=== PATIENT | female | born 1985 | race Caucasian/White ===

== ENCOUNTER 2019-04-01 11:24 | Emergency (ER) | payer BC ==
[2019-04-01 11:39] VITALS: BP 112/82; PULSE 116; TEMP 98.5; BMI 20.9
--- NOTE | 2019-04-01 11:46 | PDOC ---
History of Present Illness - General Chief Complaint: Respiratory Stated Complaint: COUGH H/O OF SINUS INFECTION ON ANTIBIOTIC Time Seen by Provider: 04/01/19 11:29 History Source: Patient Exam Limitations: No Limitations - History of Present Illness Initial Comments: 04/01/19 11:39 33 y/o female with recent sinus infection presents with congestion and cough. Patient is in a eating facility and the doctor will not prescribe Mucinex without patient being seen. Patient denies SOB, fever or chills. She continue to smoke. No N/V/d/C. Patient has asthma and is not using inhaler. Seen at an urgent care 3 days ago and started on antibiotics, Cefdinir. Is this a multiple visit Asthma Patient?: No Past History - Past Medical History Allergies/Adverse Reactions: Allergies Allergy/AdvReac Type Severity Reaction Status Date / Time gabapentin Allergy Intermediate Rash Verified 04/01/19 11:27 levofloxacin [From Levaquin] Allergy Intermediate Rash Verified 04/01/19 11:26 COPD: No GI Disorders: Yes (IBS GASTROPORESIS) Psychiatric Problems: Yes (ANXIETY) Other medical history: ANOREXIA, OSTEOPOROSIS - Immunization History Immunization Up to Date: Yes - Psycho Social/Smoking Cessation Hx Smoking History: Current every day smoker Number of Cigarettes Smoked Daily: 6 Information on smoking cessation initiated: No Hx Alcohol Use: No Drug/Substance Use Hx: No Review of Systems - Review of Systems Able to Perform ROS?: Yes Is the patient limited British proficient: No Constitutional: No: Chills, Fever HEENTM: Yes: Nose Congestion Respiratory: Yes: Cough. No: Shortness of Breath Cardiac (ROS): No: Chest Pain ABD/GI: No: Diarrhea, Nausea, Vomiting Integumentary: No: Rash All Other Systems: Reviewed and Negative *Physical Exam - Vital Signs Last Vital Signs Temp Pulse Resp BP Pulse Ox 98.5 F 116 H 16 112/82 98 04/01/19 11:26 04/01/19 11:26 04/01/19 11:26 04/01/19 11:26 04/01/19 11:26 - Physical Exam General Appearance: Yes: Nourished, Appropriately Dressed. No: Apparent Distress HEENT: positive: EOMI, BA, Normal ENT Inspection, Normal Voice, Pharynx Normal Neck: positive: Trachea midline, Normal Thyroid, Supple. negative: Tender, Rigid Respiratory/Chest: negative: Chest Tender, Lungs Clear (coarse breath sounds with occasional expiratory wheeze), Normal Breath Sounds (occasional expiratory wheeze noted), Respiratory Distress, Accessory Muscle Use Cardiovascular: positive: Regular Rhythm, Regular Rate, S1, S2. negative: Edema , Murmur Vascular Pulses: Femoral (R): 4+, Femoral (L): 4+, Carotid (R): 4+, Carotid (L) : 4+, Dorsalis-Pedis (R): 4+, Doralis-Pedis (L): 4+ Gastrointestinal/Abdominal: positive: Normal Bowel Sounds, Flat, Soft. negative : Tender, Organomegaly Lymphatic: negative: Adenopathy, Tenderness, Other Musculoskeletal: positive: Normal Inspection. 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 NML intact, Fully Oriented, Alert, Normal Mood/ Affect, Normal Response, Motor Strength 5/5 ED Progress Note - Progress Note Progress Note: 04/01/19 11:43 33 y/o female with sinus infection, now with increase congestion and cough Appears to have bronchitis as well Continue antibiotic Use albuterol inhaler Patient refused Prednisone, risks and benefits discussed with patient If worsen return to ER Patient is in agreement with plan Discharge - Discharge Information Problems reviewed: Yes Clinical Impression/Diagnosis: Bronchitis Condition: Stable - Admission No - Follow up/Referral - Patient Discharge Instructions Patient Printed Discharge Instructions: DI for Acute Bronchitis Additional Instructions: Continue current antibiotics Use your albuterol inhaler 2 puffs 4x/day as needed Mucinex 2x/day as needed Flonase 1 spray 2x/day Stop smoking If worsen return to ER - Post Discharge Activity
== END 2019-04-01 11:56 | disposition home or self-care (01) ==
LOC: FER 11:24
DX: J40 Bronchitis, not specified as acute or chronic (principal); F17.210 Nicotine dependence, cigarettes, uncomplicated; Z88.8 Allergy status to other drugs, medicaments and biological substances
CPT/HCPCS: 99281-25

== ENCOUNTER 2019-04-10 14:57 | Emergency (ER) | payer BC ==
[2019-04-10 15:16] VITALS: TEMP 98.3; BMI 21.2
--- NOTE | 2019-04-10 15:27 | PDOC ---
History of Present Illness - General Chief Complaint: Revisit, Lab Variance Stated Complaint: SENT FOR LABS History Source: Patient Exam Limitations: No Limitations - History of Present Illness Initial Comments: 04/10/19 15:20 33f hx of anorexia presents with abnormal labs - Patient has been in a prison for the past month For management of her anorexia. The patient has been getting diuretics including spironolactone and Bumex for management of fluid retention. The patients Weight has been fluctuating based on the dose of her diuretics. The patient's BUN has been increasing and has been in the high 20s to 30s recently she has been getting outpatient labs approximately every other day. The patient herself states that she has been eating and drinking well but notes that she feels swollen. Patient Also endorses a recent cough she was diagnosed with a pneumonia recently. The patient also notes some chronic back pain. Pain she denies any lower extremity edema, dyspnea on exertion. Is this a multiple visit Asthma Patient?: No Past History - Past Medical History Allergies/Adverse Reactions: Allergies Allergy/AdvReac Type Severity Reaction Status Date / Time gabapentin Allergy Intermediate Rash Verified 04/10/19 15:02 levofloxacin [From Levaquin] Allergy Intermediate Rash Verified 04/10/19 15:02 Home Medications: Ambulatory Orders Diazepam [Valium] 2.5 mg PO BID 04/01/19 Duloxetine HCl [Cymbalta] 80 mg PO DAILY 04/01/19 Lorazepam [Ativan] 1 mg PO DAILY 04/01/19 Lorazepam [Ativan] 2 mg PO DAILY 04/01/19 Melatonin 5 mg PO DAILY 04/01/19 Metoclopramide HCl [Reglan] 5 mg PO QID 04/01/19 Amoxicillin/Potassium Clav [Augmentin 875-125 Tablet] 1 each PO BID 04/10/19 Azithromycin [Zithromax -] 250 mg PO DAILY 04/10/19 Bisacodyl [Dulcolax] 5 mg PO TID 04/10/19 Bumetanide [Bumex -] 1 mg PO DAILY 04/10/19 Bumetanide [Bumex -] 2 mg PO HS 04/10/19 Levothyroxine Sodium [Levoxyl] 187.5 mcg PO DAILY 04/10/19 Linaclotide [Linzess] 290 mcg PO DAILY 04/10/19 Loratadine [Allergy] 10 mg PO BID 04/10/19 Magnesium Hydrox 2400MG/30Ml [Milk of Magnesia -] 30 ml PO ONCE 04/10/19 Polyethylene Glycol 3350 [Miralax (For Daily Use) -] 17 gm PO TID 04/10/19 Spironolactone [Aldactone] 200 mg PO DAILY 04/10/19 Zolpidem Tartrate [Ambien] 5 mg PO HS 04/10/19 COPD: No GI Disorders: Yes (IBS GASTROPORESIS) Psychiatric Problems: Yes (ANXIETY) - Immunization History Immunization Up to Date: Yes - Psycho Social/Smoking Cessation Hx Smoking History: Current every day smoker Number of Cigarettes Smoked Daily: 6 Information on smoking cessation initiated: Yes Hx Alcohol Use: No Drug/Substance Use Hx: No Review of Systems - Review of Systems Able to Perform ROS?: Yes Comments:: 04/10/19 16:14 Constitutional - no reported Fever, Chills, HEENT: no reported vision changes, sore throat Respiratory: +cough, no reported sob, hemoptysis Cardiac: no reported chest pain, palpitations, light headedness, leg swelling Abd/GI: no reported abd pain, nausea, vomiting, blood per rectum, melena, diarrhea : no reported dysuria, frequency, discharge Musculskelatal - no reported back pain, joint swelling skin - no reported bruising, erythema, rash neurological: no reported headache, numbness, focal weakness, tingling, ataxia, hematologic: no reported easy bruising, easy bleeding *Physical Exam - Vital Signs Last Vital Signs Temp Pulse Resp BP Pulse Ox 98.3 F 109 H 18 127/81 98 04/10/19 15:03 04/10/19 15:03 04/10/19 15:03 04/10/19 15:03 04/10/19 15:03 - Physical Exam Comments: 04/10/19 16:14 GENERAL: The patient is awake, alert, and fully oriented, Nontoxic - in no acute distress. HEAD: Normocephalic, atraumatic. EYES: extraocular movements intact, sclera anicteric, conjunctiva clear. ENT: Normal voice, Moist mucous membranes. NECK: Normal range of motion, supple LUNGS: Breath sounds equal, clear to auscultation bilaterally. No wheezes, no rhonchi, no rales. HEART: Regular rate and rhythm, normal S1 and S2 without murmur, rub or gallop. ABDOMEN: Soft, nontender, No guarding, no rebound. No CVA tenderness EXTREMITIES: Normal range of motion, no edema. NEUROLOGICAL: No facial assymetry, Normal speech, PSYCH: Normal mood, normal affect. SKIN: Warm, Dry, normal turgor, Heart Score/ECG Review - ECG Impressions Comment:: 04/10/19 16:14 Twelve-lead EKG was performed and reviewed by me. There is normal sinus rhythm with a rate of 96 The axis is normal. The intervals are normal. There is normal R wave progression There are no ST or T wave abnormalities. ED Treatment Course - LABORATORY CBC & Chemistry Diagram: 04/10/19 15:23 04/10/19 15:23 - RADIOLOGY Radiology Studies Ordered: Category Date Time Status CHEST PA & LAT [RAD] Stat Radiology 04/10/19 15:14 Ordered Medical Decision Making - Medical Decision Making 04/10/19 16:15 33-year-old history of anorexia, hypothyroid, pna, presenting with abnormal labs per residential facility. The patient does not have any acute complaints, Although she does state that she has diffuse swelling that is from her fluid retention. On exam the patient is no acute distress, her vitals were normal she Was slightly tachycardic upon arrival however her heart rate was 96 when reassessed. We obtained a blood work which was stable with her creatinine of 0.8 and a BUN at 36. I suspect this may be due to overdiuresis. Would recommend to decrease diuresis. Will discuss with their PATIENT SERVICES COORDINATOR and dc back to facility Discharge - Discharge Information Problems reviewed: Yes Clinical Impression/Diagnosis: Elevated BUN, Anorexia Condition: Improved Disposition: HOME - Admission No - Follow up/Referral Referrals: Ольга Gardner NP [Non Staff, Medical] - - Patient Discharge Instructions Patient Printed Discharge Instructions: DI for Dehydration -- Adult Additional Instructions: Please follow up with SERGIO Gardner for further managemnt of your diuretics and renal function. Your renal function is likely related to diuretic use. Please ensure you are eating/drinking regualrly. Print Language: SLOVAK - Post Discharge Activity
[2019-04-10 15:43] LABS: BASO % 0.7 % (0-2.0); EOS % 5.9 % (0-4.5); HEMATOCRIT 32.5 % (32.4-45.2); HEMOGLOBIN 10.7 GM/dl (10.7-15.3); LYMPH % 28.5 % (8-40); MCH 26.5 pg (25.7-33.7); MCHC 32.9 g/dl (32.0-36.0); MEAN CELL VOLUME 80.5 fl (80-96); MEAN PLT VOLUME 7.9 fl (7.5-11.1); MONO % 13.2 % (3.8-10.2); NEUT % 51.7 % (42.8-82.8); PLATELET COUNT 614 K/MM3 (134-434); RBC 4.03 M/mm3 (3.60-5.2); RDW 16.2 % (11.6-15.6); WHITE BLOOD COUNT 11.1 K/mm3 (4.0-10.8)
[2019-04-10 15:51] LABS: ALBUMIN 4.2 g/dl (3.4-5.0); BILIRUBIN,TOTAL 0.2 mg/dl (0.2-1); CALCIUM 9.3 mg/dl (8.5-10); CREATININE 0.9 mg/dl (0.55-1.3); POTASSIUM 4.4 mmol/L (3.5-5.1); TOT PROT 7.4 g/dl (6.4-8.2)
[2019-04-10] MEDS ORDERED: ACETAMINOPHEN 325 MG TABLET (FP) PO ONE (16:13)
[2019-04-10] MEDS ORDERED: ACETAMINOPHEN 325 MG TABLET (FP) ONE (16:15)
[2019-04-10 16:22] LABS: URINE APPEARANCE CLEAR; URINE COLOR YELLOW
[2019-04-10 16:23] LABS: PH,URINE 7.5 (4.5-8); URINE BILIRUBIN NEGATIVE (NEGATIVE); URINE GLUCOSE (UA) NEGATIVE (NEGATIVE); URINE KETONE TRACE (NEGATIVE); URINE LEUK ESTERASE NEGATIVE (NEGATIVE); URINE NITRITE NEGATIVE (NEGATIVE); URINE PROTEIN NEGATIVE (NEGATIVE); URINE UROBILINOGEN 0.2 (0.2-1.0)
[2019-04-10 17:14] VITALS: BP 126/83; PULSE 91
--- NOTE | 2019-04-11 12:07 | EKG ---
Test Reason : Blood Pressure : / mmHG Vent. Rate : 096 BPM Atrial Rate : 096 BPM P-R Int : 140 ms QRS Dur : 084 ms QT Int : 378 ms P-R-T Axes : 048 050 047 degrees QTc Int : 477 ms NORMAL SINUS RHYTHM POSSIBLE LEFT ATRIAL ENLARGEMENT BORDERLINE ECG WHEN COMPARED WITH ECG OF 04-APR-2019 09:31, NO SIGNIFICANT CHANGE WAS FOUND Confirmed by RITCHIE PRIEST MD ([id number]) on 04/11/2019 12:07:32 PM Referred By: DR AMBROSE Confirmed By:RITCHIE PRIEST MD
== END 2019-04-10 17:18 | disposition home or self-care (01) ==
LOC: FER 14:57
DX: R94.4 Abnormal results of kidney function studies (principal); R63.0 Anorexia; Z88.8 Allergy status to other drugs, medicaments and biological substances; E03.9 Hypothyroidism, unspecified; J18.8 Other pneumonia, unspecified organism
CPT/HCPCS: 36415; 71046-TC-FY; 80053; 81003; 84703; 85025; 93005; 99282-25

== ENCOUNTER 2019-04-11 15:58 | Emergency (ER) | payer BC ==
[2019-04-11 16:03] VITALS: TEMP 98.4; BMI 21.2
--- NOTE | 2019-04-11 16:15 | PDOC ---
History of Present Illness - General Chief Complaint: Revisit, Lab Variance Stated Complaint: RECHECK LABS Time Seen by Provider: 04/11/19 16:04 - History of Present Illness Initial Comments: Tiffany Hamilton is a 33yo woman with a PMH of anorexia who presents from [facility] with report of tachycardia and a 6lb weight gain since yesterday. She was recently seen in the ED yesterday with similar complaints; at that time she reported worsening kidney function and fluctuating weight. The residential COLLEGE PRESIDENT reported to the ED via phone that the patient was tachycardic to 120 with an increase to 130's upon standing. They were concerned about significant fluid overload though they state that Ms Hamilton took her bumex and spironolactone today. Ms Hamilton states that she feels that she has edema "everywhere." She states that she knows because her clothes do not fit the same as before. She denies any fever, chills, chest pain, SOB, visible swelling, PO intolerance, medication noncompliance, change in bowel habits, sick contacts, or new symptoms though she notes chronic back pain. Past History - Past Medical History Allergies/Adverse Reactions: Allergies Allergy/AdvReac Type Severity Reaction Status Date / Time gabapentin Allergy Intermediate Rash Verified 04/10/19 15:02 levofloxacin [From Levaquin] Allergy Intermediate Rash Verified 04/10/19 15:02 Home Medications: Ambulatory Orders Diazepam [Valium] 2.5 mg PO BID 04/01/19 Duloxetine HCl [Cymbalta] 80 mg PO DAILY 04/01/19 Lorazepam [Ativan] 1 mg PO DAILY 04/01/19 Lorazepam [Ativan] 2 mg PO DAILY 04/01/19 Melatonin 5 mg PO DAILY 04/01/19 Metoclopramide HCl [Reglan] 5 mg PO QID 04/01/19 Amoxicillin/Potassium Clav [Augmentin 875-125 Tablet] 1 each PO BID 04/10/19 Azithromycin [Zithromax -] 250 mg PO DAILY 04/10/19 Bisacodyl [Dulcolax] 5 mg PO TID 04/10/19 Bumetanide [Bumex -] 1 mg PO DAILY 04/10/19 Bumetanide [Bumex -] 2 mg PO HS 04/10/19 Levothyroxine Sodium [Levoxyl] 187.5 mcg PO DAILY 04/10/19 Linaclotide [Linzess] 290 mcg PO DAILY 04/10/19 Loratadine [Allergy] 10 mg PO BID 04/10/19 Magnesium Hydrox 2400MG/30Ml [Milk of Magnesia -] 30 ml PO ONCE 04/10/19 Polyethylene Glycol 3350 [Miralax (For Daily Use) -] 17 gm PO TID 04/10/19 Spironolactone [Aldactone] 200 mg PO DAILY 04/10/19 Zolpidem Tartrate [Ambien] 5 mg PO HS 04/10/19 COPD: No GI Disorders: Yes (IBS GASTROPORESIS) Psychiatric Problems: Yes (ANXIETY) - Immunization History Immunization Up to Date: Yes - Psycho Social/Smoking Cessation Hx Smoking History: Current every day smoker Number of Cigarettes Smoked Daily: 6 Information on smoking cessation initiated: Yes Hx Alcohol Use: No Drug/Substance Use Hx: No Review of Systems - Review of Systems Comments:: General: No fevers, no chills, no weight or appetite change, no malaise HEENT: No changes in vision, no changes in hearing, no congestion, no sore throat CV: No chest pain, no palpitations, no LE edema Pulm: No SOB, no cough, no wheezing GI: No nausea or vomiting, no change in bowel habits, no melena : No frequency, no urgency, no dysuria Musc: No back pain, no joint swelling, no recent injury Skin: No rash, no lesions, no erythema Endo: No excessive thirst, no heat/cold intolerance Heme: No unusual bruising or bleeding, no swollen glands Neuro: No syncope, no numbness/tingling, no focal weakness Vasc: No claudication Psych: No recent change in mood, no SI or HI *Physical Exam - Vital Signs Last Vital Signs Temp Pulse Resp BP Pulse Ox 98.4 F 98 H 16 127/64 100 04/11/19 16:00 04/11/19 16:00 04/11/19 16:00 04/11/19 16:00 04/11/19 16:00 ED Treatment Course - LABORATORY CBC & Chemistry Diagram: 04/11/19 16:20 Medical Decision Making - Medical Decision Making 04/11/19 16:14 Tiffany Hamilton is a 33yo woman with a PMH of anorexia who presents from [facility] with report of tachycardia and a 6lb weight gain since yesterday. The residential reported to the ED via phone that the patient was tachycardic to 120 with an increase to 130's upon standing. Ms Hamilton reports feeling "edema everywhere." - No edema apparent on exam. Benign physical exam without significant abnormalities appreciated. Lungs clear. Sats 100% on RA, no wheezing or crackles suggesting fluid. Heart rate in mid 90's - Chemistry completed this morning. No concerning abnormalities noted. BUN unchanged from yesterday, Cr slightly decreased to 0.7 from 0.9 - CBC to evaluate for anemia (baseline hgb around 10) or infection - Orthostatics 04/11/19 17:17 - CBC without concerning abnormalities - Reviewed labs from [facility] 04/05. TFT's recently completed. T4 9.6 (nl 3.2-12.6), T3 102 (60-181). TSH 0.046. Confirmed patient is currently taking synthroid daily. - UA negative - Orthostatics completed. Vitals WNL, no significant change supine to standing. - Will call facility to discuss discharge from ED 04/11/19 17:28 - Call to SERGIO Gardner at [facility]. ([phone]). Goes no voicemail , no answer. Will retry 04/11/19 17:53 - Spoke to Ольга Gardner. She explained that she feels Ms Hamilton needs to be kept in the hospital due to frequent weight fluctuations. She also states that she fears the patient will "go into renal failure" if she does not get daily labs. Explained to SERGIO Gardner that per information available, Ms Hamilton has had stable kidney function for the past approximately 4 weeks. Electrolytes are WNL , and WBC and hbg are stable over the past few weeks as well. The pt has a benign physical exam, normal vitals, and is not orthostatic. Discussed all results at length with SERGIO Gardner, who continued to request admission. Advised her that there is no indication for hospital admission at this time. Recommending outpatient follow up. Discussed with Dr Zuleika Nguyễn PGY2 Discharge - Discharge Information Problems reviewed: Yes Clinical Impression/Diagnosis: Anorexia Condition: Stable Disposition: HOME - Admission No - Follow up/Referral Referrals: Lizy Jimenez MD [Staff Physician] - [facility] [place] [Provider Group] - Patient Discharge Instructions Additional Instructions: Discharge Instructions: You were seen in the emergency department due to concerns about rapid heart rate and weight gain. Your blood tests in the ED did not show any concerning changes. Your kidney function and electrolytes checked as were liver function tests, cell counts, and a urinalysis. None of these results had significant abnormalities seen. Due to your concerns about your kidney function and your use of diuretics, you should follow up with a production tech (kidney specialist) within the next week for evaluation. You have been given contact information for Dr Jimenez. You have also been provided with information for the [facility] internal medicine clinic. Call to schedule an appointment to be seen by a primary care physician within the next week. Seek immediate medical care for any medical emergency including chest pain, difficulty breathing, loss of consciousness, inability to tolerate food or drink , significant vomiting, lack of urination, or any other significant concerns. - Post Discharge Activity
[2019-04-11 16:25] LABS: BASO % 4.4 % (0-2.0); EOS % 5.1 % (0-4.5); HEMATOCRIT 30.1 % (32.4-45.2); HEMOGLOBIN 9.9 GM/dl (10.7-15.3); LYMPH % 27.4 % (8-40); MCH 26.5 pg (25.7-33.7); MCHC 32.8 g/dl (32.0-36.0); MEAN CELL VOLUME 80.9 fl (80-96); MEAN PLT VOLUME 7.9 fl (7.5-11.1); MONO % 13.5 % (3.8-10.2); NEUT % 49.6 % (42.8-82.8); PLATELET COUNT 614 K/MM3 (134-434); RBC 3.72 M/mm3 (3.60-5.2); RDW 16.2 % (11.6-15.6); WHITE BLOOD COUNT 11.9 K/mm3 (4.0-10.8)
--- NOTE | 2019-04-11 17:20 | PDOC ---
Attending Attestation - Resident Resident Name: GopiNadia - ED Attending Attestation I have performed the following: I have examined & evaluated the patient, The case was reviewed & discussed with the resident, I agree w/resident's findings & plan - HPI HPI: 04/11/19 17:16 33-year-old female with history of AK/seizure, anorexia nervosa, pneumonia, pulmonary edema, pericardial effusion, constipation, hypo-thyroidism presenting with sensation of feeling bloated and fluid overloaded. Patient was sent over from facility for her eating disorder where she was noted to have tachycardia and a weight gain of 6.2 pounds since yesterday. She was also seen here in the emergency department yesterday for similar symptoms, work-up was unremarkable and instructed that this could be from overdiuresis. Patient is currently on spironolactone 200 mg and Bumex 1 mg daily, received her dose today. While at the rehab facility she was also noted to have tachycardia with positional changes between 120 to 132 bpm. Electrolytes done this morning were normal, BUN is 36, creatinine is 0.7. She is currently awaiting transfer to inpatient unit due to her insurance clearance to [facility] for further management of her anorexia nervosa. - Physicial Exam PE: 04/11/19 17:18 Agree with the resident's HPI and PE as documented in the electronic medical record. NAD, well appearing, EOMI, PERRL, nl conjunctiva, anicteric; neck supple. lungs clear, RRR, abdomen soft nontender. no rebound, guarding. Back nontender. ZHOU x4, no focal neuro deficits. No peripheral edema. normal color for ethnicity , WWP. - Medical Decision Making 04/11/19 17:18 Vital Signs Temp Pulse Resp BP Pulse Ox 98.4 F 98 H 16 127/64 100 04/11/19 16:00 04/11/19 16:00 04/11/19 16:00 04/11/19 16:00 04/11/19 16:00 Had discussed the case prior to patient's presentation with nurse practitioner Ольга Gardner extensively including yesterday's presentation as well as today's. Patient was evaluated at the bedside. She appears well, no respiratory distress, breathing comfortably on room air, abdomen is soft and nontender. She does not appear fluid overloaded, no evidence of crackles, wheeze or respiratory distress. No peripheral edema is noted. No JVD. Her vital signs are within normal limits, normotensive and heart rate has been sustained in the 90s. Will check orthostatics. EKG is also sinus rhythm without acute abnormalities. Chest x-ray from yesterday did not show any evidence of fluid overload. no e/o orthostatics. no tachycardia here, in NAD and nontoxic appearing. sx are appearing more related to overdiuresis, with preserved Cr function and on Bumex, a potent diuretic. Will communicate with the nurse practitioner at the facility and transfer back awaiting her bed placement in [facility] as there is no medical indication for admission at this time. 04/11/19 18:01 04/11/19 18:02 Heart Score/ECG Review #1 ECG reviewed & interpreted by me at: 16:35 General ECG Interpretation: Sinus Rhythm, Normal Rate, Normal Intervals, No acute ischemic changes
[2019-04-11 17:28] VITALS: BP 126/91; PULSE 92
--- NOTE | 2019-04-12 12:24 | EKG ---
Test Reason : Blood Pressure : / mmHG Vent. Rate : 098 BPM Atrial Rate : 098 BPM P-R Int : 136 ms QRS Dur : 084 ms QT Int : 370 ms P-R-T Axes : 043 057 044 degrees QTc Int : 472 ms NORMAL SINUS RHYTHM POSSIBLE LEFT ATRIAL ENLARGEMENT BORDERLINE ECG WHEN COMPARED WITH ECG OF 10-APR-2019 15:37, NO SIGNIFICANT CHANGE WAS FOUND Confirmed by MADELYN ZIMMERMAN MD ([id number]) on 04/12/2019 12:24:29 PM Referred By: MD BARRIOS Confirmed By:MADELYN ZIMMERMAN MD
== END 2019-04-11 18:20 | disposition home or self-care (01) ==
LOC: FER 15:58
DX: R63.0 Anorexia (principal); Z88.8 Allergy status to other drugs, medicaments and biological substances; F41.9 Anxiety disorder, unspecified; K92.9 Disease of digestive system, unspecified
CPT/HCPCS: 36415; 81003; 85025; 93005; 99283-25

== ENCOUNTER 2019-04-13 09:23 | Inpatient (IN) | payer BC ==
--- NOTE | 2019-04-13 10:05 | PDOC ---
History of Present Illness - General Chief Complaint: Tachycardia Stated Complaint: TACHYCARDIA AND SOB History Source: Patient Exam Limitations: No Limitations - History of Present Illness Initial Comments: 04/13/19 10:01 33-year-old female history of anorexia nervosa currently living at [facility] for eating disorders also has a history of previous [place] pulmonary edema renal failure CHF seizure disorder asthma here today for concerns by the facility for abnormal labs. Patient states she has been here several times for abnormal labs she is currently getting a diuretic for her fluid retention and CHF she is on Bumex and spironolactone. States that they were concerned that her BUN/creatinine ratio was off and her blood pressure has been running high she also states that she has been having episodes of tachycardia in the evening and the rate of 130s to 140s. She states that she is pending inpatient approval for treatment of the facility in [facility] where she has been admitted several times before. Patient was recently started on antibiotics for a sinus infection is taking Augmentin and prior to that she was on Ceftin ear for another bronchial infection. Patient does have a history of asthma is a smoker and has been prescribed albuterol inhalers to use as needed Past History - Past Medical History Allergies/Adverse Reactions: Allergies Allergy/AdvReac Type Severity Reaction Status Date / Time gabapentin Allergy Intermediate Rash Verified 04/13/19 09:31 levofloxacin [From Levaquin] Allergy Intermediate Rash Verified 04/13/19 09:31 Home Medications: Ambulatory Orders Diazepam [Valium] 2.5 mg PO BID 04/01/19 Duloxetine HCl [Cymbalta] 80 mg PO DAILY 04/01/19 Lorazepam [Ativan] 1 mg PO HS 04/01/19 Lorazepam [Ativan] 2 mg PO DAILY 04/01/19 Melatonin 5 mg PO HS 04/01/19 Metoclopramide HCl [Reglan] 5 mg PO QID 04/01/19 Amoxicillin/Potassium Clav [Augmentin 875-125 Tablet] 1 each PO BID 04/10/19 Azithromycin [Zithromax -] 250 mg PO DAILY 04/10/19 Bisacodyl [Dulcolax] 5 mg PO TID 04/10/19 Bumetanide [Bumex -] 1 mg PO DAILY 04/10/19 Bumetanide [Bumex -] 2 mg PO HS 04/10/19 Levothyroxine Sodium [Levoxyl] 187.5 mcg PO DAILY 04/10/19 Linaclotide [Linzess] 290 mcg PO DAILY 04/10/19 Loratadine [Allergy] 10 mg PO BID 04/10/19 Magnesium Hydrox 2400MG/30Ml [Milk of Magnesia -] 30 ml PO ONCE 04/10/19 Spironolactone [Aldactone] 200 mg PO DAILY 04/10/19 Zolpidem Tartrate [Ambien] 5 mg PO HS 04/10/19 Acetaminophen [Tylenol Extra Strength] 1 grams PO QID 04/13/19 Albuterol Sulfate Inhaler - [Ventolin Hfa Inhaler -] 1 - 2 inh PO QID PRN Aspirin/Acetaminophen/Caffeine [Excedrin Migraine Caplet] 1 each PO DAILY PRN Calcium Carbonate/Vitamin D3 [Calcium 600 + Vit D 200 Tablet] 1 each PO DAILY Diphenhydramine HCl [Benadryl -] 25 mg PO Q4HWA PRN 04/13/19 Docusate Sodium [Colace] 100 mg PO DAILY 04/13/19 Lidocaine 5% Patch [Lidoderm Patch -] 1 patch TP DAILY PRN 04/13/19 Loperamide HCl [Loperamide] 2 mg PO QID PRN 04/13/19 Mag/Aluminum/Sod Bicarb/Alginc [Gaviscon 80-14.2 mg Tab Chew] 2 tab PO TID PRN 04/13/19 Magnesium Hydrox 2400MG/30Ml [Milk of Magnesia -] 30 ml PO DAILY 04/13/19 Meclizine HCl [Antivert -] 25 mg PO ASDIR PRN 04/13/19 Nicotine Patch [Nicoderm Patch -] 1 patch TD DAILY 04/13/19 Polyethylene Glycol 3350 [Miralax (For Daily Use) -] 17 gm PO TID 04/13/19 Simethicone 0 mg PO BID PRN 04/13/19 Sumatriptan Succinate [Imitrex -] 100 mg PO PRN 04/13/19 Zolpidem Tartrate [Ambien] 5 mg PO HS 04/13/19 COPD: No CHF: Yes GI Disorders: Yes (IBS GASTROPORESIS) Disorders: Yes (RENAL FAILUR) Psychiatric Problems: Yes (ANXIETY) Other medical history: PROLONGED QT,EATING DISORDER, - Immunization History Immunization Up to Date: Yes - Psycho Social/Smoking Cessation Hx Smoking History: Current every day smoker Number of Cigarettes Smoked Daily: 6 Information on smoking cessation initiated: Yes Hx Alcohol Use: No Drug/Substance Use Hx: No Review of Systems - Review of Systems Constitutional: No: Chills, Diaphoresis HEENTM: No: Eye Pain Respiratory: No: Cough, Orthopnea, Shortness of Breath Cardiac (ROS): No: Chest Pain, Edema, Irregular Heart Rate : No: Burning, Dysuria Integumentary: No: Bruising All Other Systems: Reviewed and Negative *Physical Exam - Vital Signs Last Vital Signs Temp Pulse Resp BP Pulse Ox 98.5 F 115 H 19 113/80 100 04/13/19 09:24 04/13/19 09:24 04/13/19 09:24 04/13/19 09:24 04/13/19 09:24 - Physical Exam Comments: 04/13/19 10:03 With awake alert no acute distress lungs are clear bilaterally no appreciated crackles or wheezes. Heart is regular without any murmurs rubs or gallops. Abdomen is soft nontender. Extremities are warm well perfused there is no appreciated edema or calf tenderness. Neurologically the patient is awake alert and oriented x3 moving all 4 extremities speech is clear Heart Score/ECG Review #1 General ECG Interpretation: Sinus Rhythm, Normal Rate (97), Normal Intervals, No acute ischemic changes Compared to previous ECG there are: No significant change (comparison 04/11/19) ED Treatment Course - LABORATORY CBC & Chemistry Diagram: 04/13/19 10:00 04/13/19 10:00 Medical Decision Making - Medical Decision Making 04/13/19 10:03 33-year-old female history of anorexia nervosa with complications including heart failure renal failure also has a history of seizure disorder bronchitis here today for racing heartbeats concerns for abnormal labs. On my exam today the patient is very well-appearing there is no signs of fluid overload no wheezing or crackles in the patient's lung exam no noted peripheral edema. Her weight is 145 pounds we will obtain repeat labs and EKG to evaluate for any abnormalities. Patient's EKG is normal sinus rhythm the QTC here appears to be normal the rate is [address] or T wave changes will obtain a chest x-ray to evaluate for any lingering pneumonia of the patient's lung exam is clear will discuss with the center regarding whether or not this patient may meet criteria for inpatient on my exam she appears to be very well-appearing 04/13/19 11:46 called dennis burns [phone] 04/13/19 14:11 due to pt with h/o prior [place], describing heart rate into 130's at night while at rest, and noted heart rate up to 136 with standing in ED. will order echo, pt to be admitted for renal consult and cardiology. echo. per pt facility, they have been having difficulty with diruesis due to BUN/ Cr ration with increasing BUN on bumex. believe all weight gain is not due to eating, but concerns for fluid retention. has gained 30 lbs in one month. d/w admitting team, echo ordered. Discharge - Discharge Information Problems reviewed: Yes Clinical Impression/Diagnosis: Palpitations, Shortness of breath, Anorexia, Elevated BUN, Tachycardia Condition: Stable - Admission Yes - Follow up/Referral - Patient Discharge Instructions - Post Discharge Activity
[2019-04-13 10:29] LABS: ALBUMIN 4.4 g/dl (3.4-5.0); BILIRUBIN,TOTAL 0.4 mg/dl (0.2-1); CALCIUM 9.3 mg/dl (8.5-10); CREATININE 0.9 mg/dl (0.55-1.3); POTASSIUM 3.9 mmol/L (3.5-5.1); TOT PROT 7.4 g/dl (6.4-8.2)
[2019-04-13 10:34] LABS: BASO % 0.6 % (0-2.0); EOS % 4.9 % (0-4.5); HEMATOCRIT 32.8 % (32.4-45.2); HEMOGLOBIN 10.8 GM/dl (10.7-15.3); MCH 26.3 pg (25.7-33.7); MCHC 32.7 g/dl (32.0-36.0); MEAN CELL VOLUME 80.4 fl (80-96); MONO % 11.3 % (3.8-10.2); NEUT % 61.2 % (42.8-82.8); PLATELET COUNT 666 K/MM3 (134-434); RBC 4.08 M/mm3 (3.60-5.2); WHITE BLOOD COUNT 11.4 K/mm3 (4.0-10.8)
[2019-04-13 11:13] LABS: N-TERMINAL BNP 44.4 pg/ml (5-125)
[2019-04-13] MEDS ORDERED: BISACODYL 5 MG TABLET.DR (FP) PO SCH (13:00)
[2019-04-13] MEDS ORDERED: SODIUM CHLORIDE 0.9% 1000 ML INFUS.BAG IV ONE (13:57)
[2019-04-13] MEDS ORDERED: ACETAMINOPHEN 1000 MG/100 ML VIAL (NON FORMULARY) IVPB ONE (13:57)
[2019-04-13] MEDS ORDERED: METOCLOPRAMIDE HCL 10 MG TABLET (FP) PO ONE ×2 (13:58→14:02)
[2019-04-13] MEDS ORDERED: diazePAM 5 MG TABLET PO ONE (13:59)
[2019-04-13] MEDS ORDERED: ACETAMINOPHEN INJECTION 100 ML IVPB ONE (14:02)
[2019-04-13] MEDS ORDERED: diazePAM 5 MG TABLET ONE (14:03)
--- NOTE | 2019-04-13 14:10 | EKG ---
Test Reason : Blood Pressure : / mmHG Vent. Rate : 097 BPM Atrial Rate : 097 BPM P-R Int : 138 ms QRS Dur : 084 ms QT Int : 352 ms P-R-T Axes : 042 052 043 degrees QTc Int : 447 ms NORMAL SINUS RHYTHM POSSIBLE LEFT ATRIAL ENLARGEMENT WHEN COMPARED WITH ECG OF 11-APR-2019 16:32, NO SIGNIFICANT CHANGE WAS FOUND Confirmed by CESAR BOWEN MD ([id number]) on 04/13/2019 2:10:33 PM Referred By: Confirmed By:CESAR BOWEN MD
[2019-04-13] MEDS ORDERED: MAGNESIUM HYDROX 2400MG/30ML ORAL SUSPENSION 30 ML CUP ONE (14:30)
[2019-04-13] MEDS: MAGNESIUM HYDROX 2400MG/30ML ORAL SUSPENSION 30 ML CUP PO PRN (14:40)
[2019-04-13] MEDS: BISACODYL 5 MG TABLET.DR (FP) PO SCH ×2 (14:45→21:27)
--- NOTE | 2019-04-13 15:28 | ECHO ---
Name: MILEY SUAREZ Exam:Adult Echocardiogram Study Date: 04/13/2019 02:47 PM Age: 33 yrs Reason For Study: SOB Height: 68 in Weight: 146 lb BSA: 1.8 m2 MMode/2D Measurements & Calculations IVSd: 0.83 cm Ao root diam: 2.8 cm LVIDd: 4.3 cm LA dimension: 2.6 cm LVIDs: 3.2 cm LVPWd: 0.74 cm EDV(Teich): 85.0 ml LVOT diam: 2.0 cm ESV(Teich): 40.8 ml Doppler Measurements & Calculations MV E max keven: 71.7 cm/sec MV A max keven: 76.8 cm/sec MV dec slope: 594.2 cm/sec2 MV E/A: 0.93 Ao V2 max: 119.1 cm/sec LV V1 max P.6 mmHg Ao max P.7 mmHg LV V1 max: 95.4 cm/sec BRENDA(V,D): 2.5 cm2 TR max keven: 217.2 cm/sec PA V2 max: 113.8 cm/sec TR max P.9 mmHg PA max P.2 mmHg PI end-d keven: 103.4 cm/sec Procedure The study was technically difficult with many images being suboptimal in quality. Left Ventricle Left ventricular systolic function is normal. Ejection Fraction = 55-60%. Right Ventricle The right ventricle is grossly normal size. The right ventricular systolic function is grossly normal . Atria Normal left and right atrial size and function. Mitral Valve The mitral valve is normal in structure and function. There is no mitral valve stenosis. There is mil d mitral regurgitation. Tricuspid Valve The tricuspid valve is normal in structure and function. There is mild tricuspid regurgitation. Right ventricular systolic pressure is normal. Aortic Valve The aortic valve is trileaflet. No hemodynamically significant valvular aortic stenosis. No aortic regurgitation is present. Pulmonic Valve The pulmonic valve is not well seen, but is grossly normal. There is no pulmonic valvular stenosis. Great Vessels The aortic root is normal size. Pericardium/Pleura There is no pericardial effusion. Interpretation Summary The study was technically difficult with many images being suboptimal in quality. Left ventricular systolic function is normal. Ejection Fraction = 55-60%. The right ventricle is grossly normal size. The right ventricular systolic function is grossly normal. There is mild mitral regurgitation. There is mild tricuspid regurgitation. Right ventricular systolic pressure is normal. There is no pericardial effusion. MD Bowen *Radha 04/13/2019 03:28 PM
--- NOTE | 2019-04-13 19:56 | HP ---
Admitting History and Physical - Primary Care Physician PCP: Dr. Doll - Admission Chief Complaint: Tachycardia, abormal labs History of Present Illness: 33 year old female with history of anorexia nervosa currently living at [facility] for eating disorders, PMH of previous [place], pulmonary edema, renal failure, CHF, seizure disorder, and asthma arrived to ED from the facility over concerns for abnormal labs. Patient states facility was concerned that her BUN/creatinine ratio was off, blood pressure elevated, with episodes of tachycardia in the evening (rate of 130s to 140s). Patient states that she is pending inpatient approval for treatment at a facility in [facility]. Patient was recently started on antibiotics for a sinus infection is taking Augmentin and prior to that she was on Ceftin for another bronchial infection. According to facility heart rate goes into 130's at night while at rest, per facility weight gain is not due to eating, but concerns for fluid retention, has gained 30 lbs in one month. History Source: Patient, Medical Record Limitations to Obtaining History: No Limitations - Past Medical History [employer] TE[employer]ER: Yes: Seizure Cardiovascular: Yes: CHF, [place] Pulmonary: Yes: Asthma Gastrointestinal: Yes: Irritable Bowel Disease Renal/: Yes: Renal Inusuff Psych: Yes: Other (Eating disorder ( Anorexia Nervosa)) - Smoking History Smoking history: Current every day smoker Aproximately how many cigarettes per day: 6 - Alcohol/Substance Use Hx Alcohol Use: No History of Substance Use: reports: None - Social History Usual Living Arrangement: Yes: Other (living at a facility [facility]) ADL: Support Services History of Recent Travel: No Home Medications - Allergies Allergies/Adverse Reactions: Allergies Allergy/AdvReac Type Severity Reaction Status Date / Time gabapentin Allergy Intermediate Rash Verified 04/13/19 09:31 levofloxacin [From Levaquin] Allergy Intermediate Rash Verified 04/13/19 09:31 - Home Medications Home Medications: Ambulatory Orders Diazepam [Valium] 2.5 mg PO BID 04/01/19 Duloxetine HCl [Cymbalta] 80 mg PO DAILY 04/01/19 Lorazepam [Ativan] 1 mg PO HS 04/01/19 Lorazepam [Ativan] 2 mg PO DAILY 04/01/19 Melatonin 5 mg PO HS 04/01/19 Metoclopramide HCl [Reglan] 5 mg PO QID 04/01/19 Amoxicillin/Potassium Clav [Augmentin 875-125 Tablet] 1 each PO BID 04/10/19 Azithromycin [Zithromax -] 250 mg PO DAILY 04/10/19 Bisacodyl [Dulcolax] 5 mg PO TID 04/10/19 Bumetanide [Bumex -] 1 mg PO DAILY 04/10/19 Bumetanide [Bumex -] 2 mg PO HS 04/10/19 Levothyroxine Sodium [Levoxyl] 187.5 mcg PO DAILY 04/10/19 Linaclotide [Linzess] 290 mcg PO DAILY 04/10/19 Loratadine [Allergy] 10 mg PO BID 04/10/19 Magnesium Hydrox 2400MG/30Ml [Milk of Magnesia -] 30 ml PO ONCE 04/10/19 Spironolactone [Aldactone] 200 mg PO DAILY 04/10/19 Zolpidem Tartrate [Ambien] 5 mg PO HS 04/10/19 Acetaminophen [Tylenol Extra Strength] 1 grams PO QID 04/13/19 Albuterol Sulfate Inhaler - [Ventolin Hfa Inhaler -] 1 - 2 inh PO QID PRN Aspirin/Acetaminophen/Caffeine [Excedrin Migraine Caplet] 2 tab PO DAILY PRN 07/01 Calcium Carbonate/Vitamin D3 [Calcium 600 + Vit D 200 Tablet] 1 each PO DAILY Diphenhydramine HCl [Benadryl -] 25 mg PO Q4HWA PRN 04/13/19 Docusate Sodium [Colace] 100 mg PO DAILY 04/13/19 Fluticasone Propionate 100 mcg IN BID 04/13/19 Lidocaine 5% Patch [Lidoderm Patch -] 1 patch TP DAILY PRN 04/13/19 Loperamide HCl [Loperamide] 2 mg PO QID PRN 04/13/19 Mag/Aluminum/Sod Bicarb/Alginc [Gaviscon 80-14.2 mg Tab Chew] 2 tab PO TID PRN 04/13/19 Magnesium Hydrox 2400MG/30Ml [Milk of Magnesia -] 30 ml PO DAILY 04/13/19 Meclizine HCl [Antivert -] 25 mg PO ASDIR PRN 04/13/19 Nicotine Patch [Nicoderm Patch -] 1 patch TD DAILY 04/13/19 Polyethylene Glycol 3350 [Miralax (For Daily Use) -] 17 gm PO TID 04/13/19 Simethicone 2 tab.chew PO BID PRN 04/13/19 Sumatriptan Succinate [Imitrex -] 100 mg PO ASDIR PRN MDD 200mg 04/13/19 Zolpidem Tartrate [Ambien] 5 mg PO HS 04/13/19 Family Medical History Family History: Denies Review of Systems - Review of Systems Constitutional: reports: No Symptoms Eyes: reports: No Symptoms HENT: reports: No Symptoms Neck: reports: No Symptoms Cardiovascular: reports: No Symptoms Respiratory: reports: No Symptoms Gastrointestinal: reports: No Symptoms Genitourinary: reports: No Symptoms Musculoskeletal: reports: No Symptoms Integumentary: reports: No Symptoms Neurological: reports: No Symptoms Endocrine: reports: No Symptoms Hematology/Lymphatic: reports: No Symptoms Psychiatric: reports: No Symptoms Physical Examination Vital Signs: Vital Signs Temperature 98.7 F 04/13/19 17:27 Pulse Rate 105 H 04/13/19 17:27 Respiratory Rate 19 04/13/19 17:27 Blood Pressure 123/75 04/13/19 17:27 O2 Sat by Pulse Oximetry (%) 97 04/13/19 17:27 Labs: CBC, BMP 04/13/19 10:00 04/13/19 10:00 Imaging - Results Chest X-ray: Report Reviewed (no acute pathology) Ultrasound: Report Reviewed (Renal/kidney US: fullness in right renal calyces, minimal hydronephrosis) EKG: Report Reviewed (NSR, vent rate @ 97 BPM) Other: Report Reviewed (ECHO: EF 55-60%, left ventricular systolic function normal) Problem List - Problems (1) Prerenal azotemia Code(s): R79.89 - OTHER SPECIFIED ABNORMAL FINDINGS OF BLOOD CHEMISTRY (2) Anxiety Code(s): F41.9 - ANXIETY DISORDER, UNSPECIFIED (3) Gastroparesis Code(s): K31.84 - GASTROPARESIS (4) Constipation Code(s): K59.00 - CONSTIPATION, UNSPECIFIED (5) Congestive heart failure Code(s): I50.9 - HEART FAILURE, UNSPECIFIED (6) Hypothyroidism Code(s): E03.9 - HYPOTHYROIDISM, UNSPECIFIED (7) Insomnia disorder Code(s): G47.00 - INSOMNIA, UNSPECIFIED (8) Asthma Code(s): J45.909 - UNSPECIFIED ASTHMA, UNCOMPLICATED (9) Nicotine dependence Code(s): F17.200 - NICOTINE DEPENDENCE, UNSPECIFIED, UNCOMPLICATED (10) Anorexia Code(s): R63.0 - ANOREXIA Assessment/Plan 33 year old female with history of anorexia nervosa currently living at [facility] for eating disorders, PMH of previous [place], pulmonary edema, renal failure, CHF, seizure disorder, and asthma arrived to ED from the facility over concerns for abnormal labs. Patient states facility was concerned that her BUN/creatinine ratio was off, blood pressure elevated, with episodes of tachycardia in the evening (rate of 130s to 140s). Patient states that she is pending inpatient approval for treatment at a facility in [facility]. Patient was recently started on antibiotics for a sinus infection is taking Augmentin and prior to that she was on Ceftin for another bronchial infection. According to facility heart rate goes into 130's at night while at rest, per facility weight gain is not due to eating, but concerns for fluid retention, has gained 30 lbs in one month. # anorexia Nervosa # Pre-renal Azotemia # Anxiety - Renal/kidney US: fullness in right renal calyces, minimal hydronephrosis - bun: 36, cr: wnl - In ED given: 250 ml x1 - given Valium 2.5 x1, continue with valium 2.5 mg BID - continue with Duloxetine HCl 80 mg PO DAILY - continue with Lorazepam 1 mg PO HS - continue with Lorazepam 2 mg PO QD - protein: 7.4, Albumin: 4.4 - follow up dietary consult in AM - follow cbc, bmp in AM - renal consult in AM # congestive heart failure - given NS 250 ml x1 - ECHO: EF 55-60%, left ventricular systolic function normal - EKG: NSR, vent rate @ 97 BPM - BNP: 44.4 - Spironolactone 200 mg PO DAILY - Bumetanide 1 mg PO DAILY - Bumetanide 2 mg PO HS - cardiology follow up # IBS/ Gastroporesis # Constipation - give dulcolax suppository x1 - Continue with Metoclopramide HCl 5 mg PO QID - Continue with miralax 17 g BID - continue with Magnesium hydrox 30 daily PRN - Linaclotide 290 mcg PO DAILY - continue with colace, Dulcolax # Osteoporosis, OA - calcium + vit d supplement - pain management # Asthma - nebs prn # Insomnia - Zolpidem Tartrate 5 mg PO HS #Hypothyroidism - TSH: 0.06 - hold Levothyroxine for now # Nicotine dependence - Nicotine Patch 1 patch TD DAILY Visit type - Emergency Visit Emergency Visit: Yes ED Registration Date: 04/13/19 Care time: The patient presented to the Emergency Department on the above date and was hospitalized for further evaluation of their emergent condition. - New Patient This patient is new to me today: Yes Date on this admission: 04/14/19 - Critical Care Critical Care patient: No
[2019-04-13] MEDS: NICOTINE 7 MG/24 HOURS TOPICAL PATCH TD SCH (20:40)
[2019-04-13] MEDS ORDERED: diazePAM 5 MG TABLET PO SCH (21:00)
[2019-04-13] MEDS: POLYETHYLENE GLYCOL 3350 119 GM BTL PO SCH (21:27)
[2019-04-13 21:53] VITALS: BMI 22.3
[2019-04-14] MEDS ORDERED: BISACODYL 10 MG SUPP.RECT PR ONE (00:02)
[2019-04-14] MEDS ORDERED: morphine CARPU-JECT 2 MG/1 ML DISP.SYRIN IVPUSH ONE (00:02)
[2019-04-14] MEDS ORDERED: SIMETHICONE 80 MG TAB.CHEW (FP) PO PRN (00:29)
[2019-04-14] MEDS ORDERED: LIDOCAINE 5% TOPICAL PATCH TP PRN ×2 (00:29→10:00)
[2019-04-14] MEDS ORDERED: ACETAMINOPHEN 325 MG TABLET (FP) PO PRN (00:34)
[2019-04-14] MEDS: ZOLPIDEM TARTRATE 5 MG TABLET PO PRN ×2 (01:13→23:46)
[2019-04-14] MEDS: BISACODYL 5 MG TABLET.DR (FP) PO SCH ×3 (06:40→21:11)
[2019-04-14 08:31] LABS: HEMATOCRIT 31.7 % (32.4-45.2); HEMOGLOBIN 10.5 GM/dl (10.7-15.3); MCH 26.6 pg (25.7-33.7); MCHC 33.2 g/dl (32.0-36.0); MEAN CELL VOLUME 80.1 fl (80-96); MEAN PLT VOLUME 7.6 fl (7.5-11.1); PLATELET COUNT 624 K/MM3 (134-434); RBC 3.96 M/mm3 (3.60-5.2); RDW 15.9 % (11.6-15.6); WHITE BLOOD COUNT 8.1 K/mm3 (4.0-10.8)
[2019-04-14 08:50] LABS: ALBUMIN 4.1 g/dl (3.4-5.0); BILIRUBIN,TOTAL 0.2 mg/dl (0.2-1); CALCIUM 9.4 mg/dl (8.5-10); CREATININE 0.8 mg/dl (0.55-1.3); MAGNESIUM 2.2 mg/dL (1.8-2.4); PHOSPHOROUS 4.8 mg/dl (2.5-4.9); POTASSIUM 4.5 mmol/L (3.5-5.1); TOT PROT 6.7 g/dl (6.4-8.2)
[2019-04-14] MEDS ORDERED: DULoxetine HCL 30 MG CAPSULE.DR PO ONE (09:30)
[2019-04-14] MEDS ORDERED: DULoxetine HCL 20 MG CAPSULE.DR PO ONE (09:30)
[2019-04-14] MEDS: DULOXETINE HCL 60 MG, DULOXETINE HCL 20 MG PO SCH (09:40)
[2019-04-14] MEDS: POLYETHYLENE GLYCOL 3350 119 GM BTL PO SCH ×2 (09:45→21:11)
[2019-04-14] MEDS: CALCIUM 500MG/VIT-D 200 UNITS COMBO TABLET (FP) PO SCH (09:45)
[2019-04-14] MEDS: BUMETANIDE 1 MG TABLET PO SCH ×2 (09:45→21:18)
[2019-04-14] MEDS: SPIRONOLACTONE 25 MG TABLET (FP) PO SCH (09:45)
[2019-04-14] MEDS: METOCLOPRAMIDE HCL 10 MG TABLET (FP) PO SCH ×4 (09:50→21:18)
[2019-04-14] MEDS ORDERED: PATIENT'S OWN MEDICATION (NON-FORMULARY) (Linaclotide [Linzess] 290 MCG) PO SCH (10:00)
[2019-04-14] MEDS ORDERED: DULoxetine HCL 30 MG CAPSULE.DR PO SCH (10:00)
[2019-04-14] MEDS: NICOTINE 7 MG/24 HOURS TOPICAL PATCH TD SCH (10:10)
[2019-04-14] MEDS: diazePAM 5 MG TABLET PO SCH ×2 (10:10→22:11)
--- NOTE | 2019-04-14 11:11 | PN ---
Physical Exam: SUBJECTIVE: Patient seen and examined, pt denies cp, sob, palpitations OBJECTIVE: Vital Signs Period Temp Pulse Resp BP Sys/Gannon Pulse Ox Last 24 Hr 97.8 F-98.7 F 73-108 18-19 106-139/72-85 95-100 GENERAL: The patient is awake, alert, and fully oriented, in no acute distress. HEAD: Normal with no signs of trauma. EYES: PERRL, extraocular movements intact, sclera anicteric, conjunctiva clear. No ptosis. ENT: Ears normal, nares patent, oropharynx clear without exudates, moist mucous membranes. NECK: Trachea midline, full range of motion, supple. LUNGS: Breath sounds equal, clear to auscultation bilaterally, no wheezes, no crackles, no accessory muscle use. HEART: Regular rate and rhythm, S1, S2 without murmur, rub or gallop. ABDOMEN: Soft, nontender, nondistended, normoactive bowel sounds, no guarding, no rebound, no hepatosplenomegaly, no masses. EXTREMITIES: 2+ pulses, warm, well-perfused, no edema. NEUROLOGICAL: Cranial nerves II through XII grossly intact. Normal speech, gait not observed. PSYCH: Normal mood, normal affect,remains anxious SKIN: Warm, dry, normal turgor, no rashes or lesions noted Laboratory Results - last 24 hr 04/13/19 04/13/19 04/13/19 09:41 09:41 10:00 WBC RBC Hgb Hct MCV MCH MCHC RDW Plt Count MPV Sodium Potassium Chloride Carbon Dioxide Anion Gap BUN Creatinine Est GFR (CKD-EPI)AfAm Est GFR (CKD-EPI)NonAf Random Glucose Calcium Phosphorus Magnesium Total Bilirubin AST ALT Alkaline Phosphatase B-Natriuretic Peptide Total Protein Albumin TSH 0.06 L Urine Color Yellow Urine Appearance Clear Urine pH 6.0 Urine Protein Negative Urine Glucose (UA) Negative Urine Ketones Negative Urine Blood Negative Urine Nitrite Negative Urine Bilirubin Negative Urine Urobilinogen 0.2 Ur Leukocyte Esterase Negative Urine HCG, Qual Negative 04/13/19 04/13/19 04/14/19 10:00 10:00 07:50 WBC 8.1 RBC 3.96 Hgb 10.5 L Hct 31.7 L MCV 80.1 MCH 26.6 MCHC 33.2 RDW 15.9 H Plt Count 624 H MPV 7.6 Sodium Potassium Chloride Carbon Dioxide Anion Gap BUN Creatinine Est GFR (CKD-EPI)AfAm Est GFR (CKD-EPI)NonAf Random Glucose Calcium Phosphorus 5.0 H Magnesium Total Bilirubin AST ALT Alkaline Phosphatase B-Natriuretic Peptide 44.4 Total Protein Albumin TSH Urine Color Urine Appearance Urine pH Urine Protein Urine Glucose (UA) Urine Ketones Urine Blood Urine Nitrite Urine Bilirubin Urine Urobilinogen Ur Leukocyte Esterase Urine HCG, Qual 04/14/19 07:50 WBC RBC Hgb Hct MCV MCH MCHC RDW Plt Count MPV Sodium 140 Potassium 4.5 Chloride 101 Carbon Dioxide 27 Anion Gap 12 BUN 28.0 H Creatinine 0.8 Est GFR (CKD-EPI)AfAm 111.48 Est GFR (CKD-EPI)NonAf 96.19 Random Glucose 104 Calcium 9.4 Phosphorus 4.8 Magnesium 2.2 Total Bilirubin 0.2 AST 30 ALT 45 Alkaline Phosphatase 74 D B-Natriuretic Peptide Total Protein 6.7 Albumin 4.1 TSH Urine Color Urine Appearance Urine pH Urine Protein Urine Glucose (UA) Urine Ketones Urine Blood Urine Nitrite Urine Bilirubin Urine Urobilinogen Ur Leukocyte Esterase Urine HCG, Qual Active Medications Generic Name Dose Route Start Last Admin Trade Name Freq PRN Reason Stop Dose Admin Acetaminophen 650 mg 04/14/19 00:34 Tylenol - PO Q6H PRN PAIN LEVEL 1-5 Albuterol/Ipratropium 1 amp 04/14/19 08:00 Duoneb - NEB RTID [facility] Bisacodyl 5 mg 04/14/19 06:00 04/14/19 06:40 Dulcolax - PO 5 mg TID GRETA Administration Bumetanide 1 mg 04/14/19 10:00 Bumex - PO DAILY GRETA Bumetanide 2 mg 04/14/19 22:00 Bumex - PO HS [facility] Calcium Carbonate/Cholecalciferol 1 tab 04/14/19 10:00 Os-Jevon 500+D - PO DAILY GRETA Diazepam 2.5 mg 04/14/19 10:00 Valium - PO BID GRETA Duloxetine HCl 60 mg/ 80 mg 04/14/19 10:00 Duloxetine HCl 20 mg PO DAILY [facility] Heparin Sodium (Porcine) 5,000 unit 04/14/19 10:00 Heparin - SQ BID GRETA Lidocaine 1 patch 04/14/19 10:00 Lidoderm Patch - TP DAILY PRN PAIN Magnesium Hydroxide 30 ml 04/13/19 14:29 04/13/19 14:40 Milk Of Magnesia - PO 30 ml DAILY PRN Administration CONSTIPATION Metoclopramide HCl 5 mg 04/14/19 10:00 Reglan - PO QID GRETA Miscellaneous 1 each 04/14/19 22:00 Lidoderm Patch Removal MC DAILY@2200 GRETA Nicotine 7 mg 04/13/19 16:15 04/13/19 20:40 Nicoderm Patch - TD 7 mg DAILY GRETA Administration Non-Formulary Medication 290 mcg 04/14/19 10:00 Linaclotide [Linzess] PO DAILY GRETA Polyethylene Glycol 34 gm 04/13/19 17:00 04/13/19 21:27 Miralax (For Daily Use) - PO 34 grams BID GRETA Administration Simethicone 160 mg 04/14/19 00:29 Mylicon - PO BID PRN GAS Spironolactone 200 mg 04/14/19 10:00 Aldactone - PO DAILY GRETA Zolpidem Tartrate 5 mg 04/14/19 00:58 04/14/19 01:13 Ambien - PO 5 mg HS PRN Administration INSOMNIA CxR: No acute lung pathology ASSESSMENT/PLAN: 33 year old female with history of anorexia nervosa currently living at [facility] for eating disorders, PMH of previous [place], pulmonary edema, renal failure, CHF, seizure disorder, and asthma arrived to ED from the facility over concerns for abnormal labs. Patient states facility was concerned that her BUN/creatinine ratio was off, blood pressure elevated, with episodes of tachycardia in the evening (rate of 130s to 140s). Patient states that she is pending inpatient approval for treatment at a facility in [facility]. Patient was recently started on antibiotics for a sinus infection is taking Augmentin and prior to that she was on Ceftin for another bronchial infection. According to facility heart rate goes into 130's at night while at rest, per facility weight gain is not due to eating, but concerns for fluid retention, has gained 30 lbs in one month. # Pre-renal Azotemia likely due to diuretic use - resolved -Na 135 on admission, Rpt NA 140 - cre stable, Bun 28 - s/p gentle hydration - Renal/kidney US: fullness in right renal calyces, minimal hydronephrosis - renal consulted # Reports hx of congestive heart failure - stable - ECHO: EF 55-60%, left ventricular systolic function normal - EKG: NSR, vent rate @ 97 BPM - BNP: 44.4 - euvolemic - Spironolactone 200 mg PO DAILY - Bumetanide 1 mg PO DAILY - Bumetanide 2 mg PO HS -spoke with compliance technician Dr. Lea, reviewed echo report, rec out pt cardiology followup - pt remained clinically stable, * Anorexia Nervosa, Anxiety - will cont on home meds # IBS/ Gastroporesis/ constipation - will cont on Reg, and laxatives - monitor BM # Osteoporosis, OA - calcium + vit d supplement - pain management # Asthma - stable -Fluticasone -NF - started on Asmanex -nebs prn # Insomnia - Zolpidem Tartrate 5 mg PO HS #Hypothyroidism - TSH: 0.06 - pt takes 187 mcg daily - will cont on Synthroid 150mcg -will check Free T4 # Nicotine dependence - Nicotine Patch 1 patch TD DAILY - smoking cessation counselling done # VTE: Heparin SQ # F/E/N: Heart Healthy Diet - Replace electrolytes as needed Dispo: Pt clinically stable Contact information at [facility] #[phone], tried to call but no one answer As per Jhon Corrales (HAUL DRIVER) from [facility] for eating disorders, states that inpatient treatment at a facility in [facility] has been approved. Visit type - Emergency Visit Emergency Visit: Yes ED Registration Date: 04/13/19 Care time: The patient presented to the Emergency Department on the above date and was hospitalized for further evaluation of their emergent condition. - New Patient This patient is new to me today: Yes Date on this admission: 04/14/19 - Critical Care Critical Care patient: No
[2019-04-14] MEDS: LEVOTHYROXINE NA 150 MCG TABLET PO SCH (12:00)
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
[2019-04-14] MEDS: HEPARIN NA (PORCINE) 5,000 UNITS/ML 1ML VIAL SQ SCH ×2 (13:24→21:10)
[2019-04-14] MEDS: ALBUTEROL SO4 2.5/IPRATROPIUM 0.5 INH SOL 3 ML VIAL.NEB. NEB SCH ×3 (13:24→21:11)
[2019-04-14] MEDS: BISACODYL 10 MG SUPP.RECT PR PRN (18:24)
[2019-04-14] MEDS: MAGNESIUM HYDROX 2400MG/30ML ORAL SUSPENSION 30 ML CUP PO PRN (18:24)
[2019-04-14] MEDS ORDERED: LORazepam 1 MG TABLET PO ONE (20:28)
[2019-04-14] MEDS: MOMETASONE FUROATE 110 MCG/IH INHALER IH SCH (21:12)
[2019-04-14] MEDS: LIDOCAINE PATCH REMOVAL MC SCH (21:13)
[2019-04-14] MEDS ORDERED: PT OWN MED DRAWER 7, Y5N ONE (21:17)
[2019-04-15] MEDS: BISACODYL 5 MG TABLET.DR (FP) PO SCH ×3 (05:54→22:18)
[2019-04-15] MEDS: LEVOTHYROXINE NA 150 MCG TABLET PO SCH (07:05)
[2019-04-15] MEDS: ALBUTEROL SO4 2.5/IPRATROPIUM 0.5 INH SOL 3 ML VIAL.NEB. NEB SCH ×3 (08:14→19:52)
[2019-04-15] MEDS ORDERED: DULoxetine HCL 30 MG CAPSULE.DR PO ONE (08:41)
[2019-04-15] MEDS ORDERED: DULoxetine HCL 20 MG CAPSULE.DR PO ONE (08:41)
[2019-04-15] MEDS ORDERED: PT OWN MED DRAWER 7, Y5N ONE ×2 (08:44→22:11)
[2019-04-15] MEDS: SPIRONOLACTONE 25 MG TABLET (FP) PO SCH (09:06)
[2019-04-15] MEDS: MOMETASONE FUROATE 110 MCG/IH INHALER IH SCH ×2 (09:06→22:18)
[2019-04-15] MEDS: DULOXETINE HCL 60 MG, DULOXETINE HCL 20 MG PO SCH (09:07)
[2019-04-15] MEDS: HEPARIN NA (PORCINE) 5,000 UNITS/ML 1ML VIAL SQ SCH ×3 (09:07→22:19)
[2019-04-15] MEDS: CALCIUM 500MG/VIT-D 200 UNITS COMBO TABLET (FP) PO SCH (09:07)
[2019-04-15] MEDS: NICOTINE 7 MG/24 HOURS TOPICAL PATCH TD SCH (09:07)
[2019-04-15] MEDS: BUMETANIDE 1 MG TABLET PO SCH ×2 (09:07→22:14)
[2019-04-15] MEDS: METOCLOPRAMIDE HCL 10 MG TABLET (FP) PO SCH ×3 (09:08→22:17)
[2019-04-15] MEDS: diazePAM 5 MG TABLET PO SCH ×2 (09:08→22:15)
[2019-04-15] MEDS: LORazepam 1 MG TABLET PO SCH (10:15)
[2019-04-15] MEDS: POLYETHYLENE GLYCOL 3350 119 GM BTL PO SCH ×2 (10:40→22:18)
[2019-04-15 12:47] LABS: BASO % 0.5 % (0-2.0); EOS % 2.8 % (0-4.5); HEMATOCRIT 34.9 % (32.4-45.2); HEMOGLOBIN 11.4 GM/dl (10.7-15.3); MCHC 32.6 g/dl (32.0-36.0); MEAN CELL VOLUME 79.8 fl (80-96); MEAN PLT VOLUME 7.6 fl (7.5-11.1); MONO % 11.2 % (3.8-10.2); NEUT % 59.5 % (42.8-82.8); PLATELET COUNT 766 K/MM3 (134-434); RBC 4.37 M/mm3 (3.60-5.2); RDW 15.9 % (11.6-15.6); WHITE BLOOD COUNT 8.5 K/mm3 (4.0-10.8)
--- NOTE | 2019-04-15 13:03 | PN ---
Physical Exam: SUBJECTIVE: Patient seen and examined, labs ordered for today pt reports hx of 'edema' and requesting IV lasix. no edema, noted on exam, no cough, sob. daily weights, I/O ordered seen by renal-no evidence of CKD OBJECTIVE: Vital Signs Period Temp Pulse Resp BP Sys/Gannon Pulse Ox Last 24 Hr 97.6 F-98.4 F 76-89 18-19 108-120/45-79 95-100 GENERAL: The patient is awake, alert, and fully oriented, in no acute distress. HEAD: Normal with no signs of trauma. EYES: PERRL, extraocular movements intact, sclera anicteric, conjunctiva clear. No ptosis. ENT: Ears normal, nares patent, oropharynx clear without exudates, moist mucous membranes. NECK: Trachea midline, full range of motion, supple. LUNGS: Breath sounds equal, clear to auscultation bilaterally, no wheezes, no crackles, no accessory muscle use. HEART: Regular rate and rhythm, S1, S2 without murmur, rub or gallop. ABDOMEN: Soft, nontender, nondistended, normoactive bowel sounds, no guarding, no rebound, no hepatosplenomegaly, no masses. EXTREMITIES: 2+ pulses, warm, well-perfused, no edema. NEUROLOGICAL: Cranial nerves II through XII grossly intact. Normal speech, gait not observed. PSYCH: Normal mood, normal affect. SKIN: Warm, dry, normal turgor, no rashes or lesions noted Laboratory Results - last 24 hr 04/13/19 04/15/19 10:00 12:30 WBC 8.5 RBC 4.37 Hgb 11.4 Hct 34.9 MCV 79.8 L MCH 26.0 MCHC 32.6 RDW 15.9 H Plt Count 766 H MPV 7.6 Absolute Neuts (auto) 5.1 Neutrophils % 59.5 Lymphocytes % 26.0 Monocytes % 11.2 H Eosinophils % 2.8 Basophils % 0.5 B-Natriuretic Peptide 44.4 Free T4 1.21 Active Medications Generic Name Dose Route Start Last Admin Trade Name Freq PRN Reason Stop Dose Admin Acetaminophen 650 mg 04/14/19 00:34 04/14/19 18:24 Tylenol - PO 650 mg Q6H PRN Administration PAIN LEVEL 1-5 Albuterol/Ipratropium 1 amp 04/14/19 08:00 04/14/19 21:11 Duoneb - NEB 1 amp RTID GRETA Administration Bisacodyl 5 mg 04/14/19 06:00 04/15/19 05:54 Dulcolax - PO 5 mg TID GRETA Administration Bisacodyl 10 mg 04/14/19 16:32 04/14/19 18:24 Dulcolax Suppository - [place] 10 mg PRN PRN Administration CONSTIPATION Bumetanide 1 mg 04/14/19 10:00 04/15/19 09:07 Bumex - PO 1 mg DAILY GRETA Administration Bumetanide 2 mg 04/14/19 22:00 04/14/19 21:18 Bumex - PO 2 mg HS GRETA Administration Calcium Carbonate/Cholecalciferol 1 tab 04/14/19 10:00 04/15/19 09:07 Os-Jevon 500+D - PO 1 tab DAILY GRETA Administration Diazepam 2.5 mg 04/14/19 10:00 04/15/19 09:08 Valium - PO 2.5 mg BID GERTA Administration Duloxetine HCl 60 mg/ 80 mg 04/14/19 10:00 04/15/19 09:07 Duloxetine HCl 20 mg PO 80 mg DAILY GRETA Administration Heparin Sodium (Porcine) 5,000 unit 04/14/19 10:00 04/15/19 09:07 Heparin - SQ 5,000 unit BID GRETA Administration Levothyroxine Sodium 150 mcg 04/14/19 11:45 04/15/19 07:05 Synthroid - PO 150 mcg DAILY@0700 GRETA Administration Lidocaine 1 patch 04/14/19 10:00 Lidoderm Patch - TP DAILY PRN PAIN Lorazepam 1 mg 04/15/19 22:00 Ativan - PO HS GRETA Lorazepam 2 mg 04/15/19 10:00 Ativan - PO DAILY GRETA Magnesium Hydroxide 30 ml 04/13/19 14:29 04/14/19 18:24 Milk Of Magnesia - PO 30 ml DAILY PRN Administration CONSTIPATION Metoclopramide HCl 5 mg 04/14/19 10:00 04/15/19 09:08 Reglan - PO 5 mg QID GRETA Administration Miscellaneous 1 each 04/14/19 22:00 04/14/19 21:13 Lidoderm Patch Removal MC 1 each DAILY@2200 [facility] Administration Mometasone Furoate 1 puff 04/14/19 22:00 04/15/19 09:06 Asmanex 110mcg - IH 1 puff BID GRETA Administration Nicotine 7 mg 04/13/19 16:15 04/15/19 09:07 Nicoderm Patch - TD 7 mg DAILY GRETA Administration Non-Formulary Medication 290 mcg 04/14/19 10:00 Linaclotide [Linzess] PO DAILY GRETA Polyethylene Glycol 34 gm 04/13/19 17:00 04/14/19 21:11 Miralax (For Daily Use) - PO 17 grams BID GRETA Administration Simethicone 160 mg 04/14/19 00:29 Mylicon - PO BID PRN GAS Spironolactone 200 mg 04/14/19 10:00 04/15/19 09:06 Aldactone - PO 200 mg DAILY GRETA Administration Zolpidem Tartrate 5 mg 04/14/19 00:58 04/14/19 23:46 Ambien - PO 5 mg HS PRN Administration INSOMNIA ASSESSMENT/PLAN: 33 year old female with history of anorexia nervosa currently living at [facility] for eating disorders, PMH of previous [place], pulmonary edema, renal failure, CHF, seizure disorder, and asthma arrived to ED from the facility over concerns for abnormal labs. Patient states facility was concerned that her BUN/creatinine ratio was off, blood pressure elevated, with episodes of tachycardia in the evening (rate of 130s to 140s). Patient states that she is pending inpatient approval for treatment at a facility in [facility]. Patient was recently started on antibiotics for a sinus infection is taking Augmentin and prior to that she was on Ceftin for another bronchial infection. According to facility heart rate goes into 130's at night while at rest, per facility weight gain is not due to eating, but concerns for fluid retention, has gained 30 lbs in one month. # Pre-renal Azotemia likely due to diuretic use - resolved -Na 135 on admission, today 133 - cre stable, Bun improving - s/p gentle hydration - Renal/kidney US: fullness in right renal calyces, minimal hydronephrosis - renal note appreciated no evidence of CKD # Reports hx of congestive heart failure - stable - ECHO: EF 55-60%, left ventricular systolic function normal - EKG: NSR, vent rate @ 97 BPM - BNP: 44.4 - Spironolactone 200 mg PO DAILY - Bumetanide 1 mg PO DAILY - Bumetanide 2 mg PO HS -daily weight, strict I/O ordered -no lasix ordered today -spoke with regional extension service specialist Dr. Lea, reviewed echo report, rec out pt cardiology followup * Anorexia Nervosa, Anxiety - will cont on home meds # IBS/ Gastroporesis/ constipation - will cont on Reg, and laxatives - monitor BM # Osteoporosis, OA - calcium + vit d supplement - pain management # Asthma - stable -Fluticasone -NF - started on Asmanex -nebs prn # Insomnia - Zolpidem 5 mg PO HS #Hypothyroidism - TSH: 0.06 - pt takes 187 mcg daily - will cont on Synthroid 150mcg -T4 wnl # Nicotine dependence - Nicotine Patch 1 patch TD DAILY - smoking cessation counselling done # VTE: Heparin SQ # F/E/N: Heart Healthy Diet - Replace electrolytes as needed Dispo: Pt clinically stable Contact information at [facility] #[phone], tried to call but no one answer As per Jhon Corrales (DIRECTOR OF INTELLIGENCE) from [facility] for eating disorders, states that inpatient treatment at a facility in [facility] has been approved. Visit type - Emergency Visit Emergency Visit: Yes ED Registration Date: 04/13/19 Care time: The patient presented to the Emergency Department on the above date and was hospitalized for further evaluation of their emergent condition. - New Patient This patient is new to me today: Yes Date on this admission: 04/15/19 - Critical Care Critical Care patient: No
[2019-04-15 13:04] LABS: ALBUMIN 4.5 g/dl (3.4-5.0); BILIRUBIN,TOTAL 0.5 mg/dl (0.2-1); CALCIUM 9.9 mg/dl (8.5-10); CREATININE 0.9 mg/dl (0.55-1.3); MAGNESIUM 1.7 mg/dL (1.8-2.4); POTASSIUM 4.2 mmol/L (3.5-5.1); TOT PROT 7.5 g/dl (6.4-8.2)
[2019-04-15] MEDS ORDERED: KETOROLAC TROMETHAMINE 15 MG/ML VIAL IM ONE (15:45)
[2019-04-15] MEDS: BISACODYL 10 MG SUPP.RECT PR PRN (16:10)
[2019-04-15] MEDS ORDERED: traMADol HCL 50 MG TABLET PO ONE (20:57)
[2019-04-15] MEDS ORDERED: LORazepam 1 MG TABLET PO SCH (22:00)
[2019-04-15] MEDS: MAGNESIUM OXIDE 400 MG TABLET (FP) PO SCH (22:19)
[2019-04-15] MEDS: LIDOCAINE PATCH REMOVAL MC SCH (22:19)
[2019-04-15] MEDS: ZOLPIDEM TARTRATE 5 MG TABLET PO PRN (23:33)
[2019-04-16] MEDS: LEVOTHYROXINE NA 150 MCG TABLET PO SCH (06:26)
[2019-04-16] MEDS: BISACODYL 5 MG TABLET.DR (FP) PO SCH ×2 (06:26→15:02)
[2019-04-16 08:10] LABS: BASO % 0.5 % (0-2.0); EOS % 3.9 % (0-4.5); HEMATOCRIT 31.9 % (32.4-45.2); HEMOGLOBIN 10.7 GM/dl (10.7-15.3); LYMPH % 31.8 % (8-40); MCH 26.7 pg (25.7-33.7); MCHC 33.5 g/dl (32.0-36.0); MEAN CELL VOLUME 79.9 fl (80-96); MEAN PLT VOLUME 7.6 fl (7.5-11.1); MONO % 11.7 % (3.8-10.2); NEUT % 52.1 % (42.8-82.8); PLATELET COUNT 650 K/MM3 (134-434); RDW 15.8 % (11.6-15.6); WHITE BLOOD COUNT 8.4 K/mm3 (4.0-10.8)
[2019-04-16 08:18] LABS: ALBUMIN 4.2 g/dl (3.4-5.0); BILIRUBIN,TOTAL 0.5 mg/dl (0.2-1); CALCIUM 9.5 mg/dl (8.5-10); MAGNESIUM 2.1 mg/dL (1.8-2.4); POTASSIUM 4.2 mmol/L (3.5-5.1); TOT PROT 6.8 g/dl (6.4-8.2)
[2019-04-16] MEDS ORDERED: DULoxetine HCL 20 MG CAPSULE.DR PO ONE (09:57)
[2019-04-16] MEDS ORDERED: DULoxetine HCL 30 MG CAPSULE.DR PO ONE (09:57)
[2019-04-16] MEDS ORDERED: PT OWN MED DRAWER 7, Y5N ONE ×3 (09:59→18:35)
[2019-04-16] MEDS: BUMETANIDE 1 MG TABLET PO SCH (10:10)
[2019-04-16] MEDS: ALBUTEROL SO4 2.5/IPRATROPIUM 0.5 INH SOL 3 ML VIAL.NEB. NEB SCH ×2 (10:10→14:21)
[2019-04-16] MEDS: DULOXETINE HCL 60 MG, DULOXETINE HCL 20 MG PO SCH (10:11)
[2019-04-16] MEDS: LORazepam 1 MG TABLET PO SCH (10:12)
[2019-04-16] MEDS: CALCIUM 500MG/VIT-D 200 UNITS COMBO TABLET (FP) PO SCH (10:12)
[2019-04-16] MEDS: MAGNESIUM OXIDE 400 MG TABLET (FP) PO SCH (10:12)
[2019-04-16] MEDS: METOCLOPRAMIDE HCL 10 MG TABLET (FP) PO SCH ×3 (10:13→18:47)
[2019-04-16] MEDS: HEPARIN NA (PORCINE) 5,000 UNITS/ML 1ML VIAL SQ SCH (10:13)
[2019-04-16] MEDS: MOMETASONE FUROATE 110 MCG/IH INHALER IH SCH (10:14)
[2019-04-16] MEDS: diazePAM 5 MG TABLET PO SCH (10:14)
[2019-04-16] MEDS: NICOTINE 7 MG/24 HOURS TOPICAL PATCH TD SCH (10:14)
[2019-04-16] MEDS: MAGNESIUM HYDROX 2400MG/30ML ORAL SUSPENSION 30 ML CUP PO PRN (10:16)
[2019-04-16] MEDS: BISACODYL 10 MG SUPP.RECT PR PRN (10:16)
[2019-04-16] MEDS: POLYETHYLENE GLYCOL 3350 119 GM BTL PO SCH (10:23)
[2019-04-16] MEDS: SPIRONOLACTONE 25 MG TABLET (FP) PO SCH (10:23)
--- NOTE | 2019-04-16 11:17 | PN ---
Progress Note, Physician History of Present Illness: Pt seen and examined at bedside. She is awake and alert. She is asking for IV lasix. She denies shortness of breath. She denies lower ext edema. - Current Medication List Current Medications: Active Medications Acetaminophen (Tylenol -) 650 mg PO Q6H PRN PRN Reason: PAIN LEVEL 1-5 Last Admin: 04/14/19 18:24 Dose: 650 mg Albuterol/Ipratropium (Duoneb -) 1 amp NEB RTID [facility] Last Admin: 04/16/19 10:10 Dose: Not Given Bisacodyl (Dulcolax -) 5 mg PO TID [facility] Last Admin: 04/16/19 06:26 Dose: 5 mg Bisacodyl (Dulcolax Suppository -) 10 mg OK PRN PRN PRN Reason: CONSTIPATION Last Admin: 04/16/19 10:16 Dose: 10 mg Bumetanide (Bumex -) 1 mg PO DAILY [facility] Last Admin: 04/16/19 10:10 Dose: 1 mg Bumetanide (Bumex -) 2 mg PO HS [facility] Last Admin: 04/15/19 22:14 Dose: 2 mg Calcium Carbonate/Cholecalciferol (Os-Jevon 500+D -) 1 tab PO DAILY [facility] Last Admin: 04/16/19 10:12 Dose: 1 tab Diazepam (Valium -) 2.5 mg PO BID [facility] Last Admin: 04/16/19 10:14 Dose: 2.5 mg Duloxetine HCl 60 mg/ (Duloxetine HCl 20 mg) 80 mg PO DAILY [facility] Last Admin: 04/16/19 10:11 Dose: 80 mg Heparin Sodium (Porcine) (Heparin -) 5,000 unit SQ BID [facility] Last Admin: 04/16/19 10:13 Dose: Not Given Levothyroxine Sodium (Synthroid -) 150 mcg PO DAILY@0700 [facility] Last Admin: 04/16/19 06:26 Dose: 150 mcg Lidocaine (Lidoderm Patch -) 1 patch TP DAILY PRN PRN Reason: PAIN Lorazepam (Ativan -) 1 mg PO HS [facility] Last Admin: 04/15/19 22:18 Dose: 1 mg Lorazepam (Ativan -) 2 mg PO DAILY [facility] Last Admin: 04/16/19 10:12 Dose: 2 mg Magnesium Hydroxide (Milk Of Magnesia -) 30 ml PO DAILY PRN PRN Reason: CONSTIPATION Last Admin: 04/16/19 10:16 Dose: 30 ml Magnesium Oxide (Mag-Ox -) 400 mg PO BID [facility] Last Admin: 04/16/19 10:12 Dose: 400 mg Metoclopramide HCl (Reglan -) 5 mg PO QID [facility] Last Admin: 04/16/19 10:13 Dose: 5 mg Miscellaneous (Lidoderm Patch Removal) 1 each MC DAILY@2200 [facility] Last Admin: 04/15/19 22:19 Dose: Not Given Mometasone Furoate (Asmanex 110mcg -) 1 puff IH BID [facility] Last Admin: 04/16/19 10:14 Dose: 1 puff Nicotine (Nicoderm Patch -) 7 mg TD DAILY [facility] Last Admin: 04/16/19 10:14 Dose: 7 mg Non-Formulary Medication (Linaclotide [Linzess]) 290 mcg PO DAILY [facility] Polyethylene Glycol (Miralax (For Daily Use) -) 34 gm PO BID [facility] Last Admin: 04/16/19 10:23 Dose: 17 grams Simethicone (Mylicon -) 160 mg PO BID PRN PRN Reason: GAS Spironolactone (Aldactone -) 200 mg PO DAILY [facility] Last Admin: 04/16/19 10:23 Dose: 200 mg Zolpidem Tartrate (Ambien -) 5 mg PO HS PRN PRN Reason: INSOMNIA Last Admin: 04/15/19 23:33 Dose: 5 mg - Objective Vital Signs: Vital Signs Temperature 98.0 F 04/16/19 06:00 Pulse Rate 76 04/16/19 06:00 Respiratory Rate 16 04/16/19 06:00 Blood Pressure 101/57 L 04/16/19 06:00 O2 Sat by Pulse Oximetry (%) 100 04/16/19 08:00 Constitutional: Yes: Calm Eyes: Yes: Conjunctiva Clear HENT: Yes: Atraumatic Cardiovascular: Yes: S1, S2 Respiratory: Yes: CTA Bilaterally Gastrointestinal: Yes: WNL Genitourinary: Yes: WNL Musculoskeletal: Yes: WNL Extremities: Yes: WNL Edema: No Integumentary: Yes: Tattoos Neurological: Yes: Oriented Psychiatric: Yes: Oriented Labs: CBC, BMP 04/16/19 07:20 04/16/19 07:20 - ....Imaging Ultrasound: Report Reviewed Assessment/Plan Current Medications Generic Name Dose Route Start Last Admin Trade Name Freq PRN Reason Stop Dose Admin Acetaminophen 650 mg 04/14/19 00:34 04/14/19 18:24 Tylenol - PO 650 mg Q6H PRN Administration PAIN LEVEL 1-5 Albuterol/Ipratropium 1 amp 04/14/19 08:00 04/16/19 10:10 Duoneb - NEB Not Given RTID [facility] Bisacodyl 5 mg 04/14/19 06:00 04/16/19 06:26 Dulcolax - PO 5 mg TID [facility] Administration Bisacodyl 10 mg 04/14/19 16:32 04/16/19 10:16 Dulcolax Suppository - OK 10 mg PRN PRN Administration CONSTIPATION Bumetanide 1 mg 04/14/19 10:00 04/16/19 10:10 Bumex - PO 1 mg DAILY [facility] Administration Bumetanide 2 mg 04/14/19 22:00 04/15/19 22:14 Bumex - PO 2 mg HS [facility] Administration Calcium Carbonate/Cholecalciferol 1 tab 04/14/19 10:00 04/16/19 10:12 Os-Jevon 500+D - PO 1 tab DAILY [facility] Administration Diazepam 2.5 mg 04/14/19 10:00 04/16/19 10:14 Valium - PO 2.5 mg BID [facility] Administration Duloxetine HCl 60 mg/ 80 mg 04/14/19 10:00 04/16/19 10:11 Duloxetine HCl 20 mg PO 80 mg DAILY [facility] Administration Heparin Sodium (Porcine) 5,000 unit 04/14/19 10:00 04/16/19 10:13 Heparin - SQ Not Given BID [facility] Levothyroxine Sodium 150 mcg 04/14/19 11:45 04/16/19 06:26 Synthroid - PO 150 mcg DAILY@0700 [facility] Administration Lidocaine 1 patch 04/14/19 10:00 Lidoderm Patch - TP DAILY PRN PAIN Lorazepam 1 mg 04/15/19 22:00 04/15/19 22:18 Ativan - PO 1 mg HS [facility] Administration Lorazepam 2 mg 04/15/19 10:00 04/16/19 10:12 Ativan - PO 2 mg DAILY [facility] Administration Magnesium Hydroxide 30 ml 04/13/19 14:29 11/04/19 10:16 Milk Of Magnesia - PO 30 ml DAILY PRN Administration CONSTIPATION Magnesium Oxide 400 mg 04/15/19 22:00 04/16/19 10:12 Mag-Ox - PO 400 mg BID [facility] Administration Metoclopramide HCl 5 mg 04/14/19 10:00 04/16/19 10:13 Reglan - PO 5 mg QID [facility] Administration Miscellaneous 1 each 04/14/19 22:00 04/15/19 22:19 Lidoderm Patch Removal MC Not Given DAILY@2200 [facility] Mometasone Furoate 1 puff 04/14/19 22:00 04/16/19 10:14 Asmanex 110mcg - IH 1 puff BID [facility] Administration Nicotine 7 mg 04/13/19 16:15 04/16/19 10:14 Nicoderm Patch - TD 7 mg DAILY [facility] Administration Non-Formulary Medication 290 mcg 04/14/19 10:00 Linaclotide [Linzess] PO DAILY [facility] Polyethylene Glycol 34 gm 04/13/19 17:00 04/16/19 10:23 Miralax (For Daily Use) - PO 17 grams BID [facility] Administration Simethicone 160 mg 04/14/19 00:29 Mylicon - PO BID PRN GAS Spironolactone 200 mg 04/14/19 10:00 04/16/19 10:23 Aldactone - PO 200 mg DAILY [facility] Administration Zolpidem Tartrate 5 mg 04/14/19 00:58 04/15/19 23:33 Ambien - PO 5 mg HS PRN Administration INSOMNIA Laboratory Tests 04/13/19 04/13/19 04/14/19 09:41 10:00 07:50 BUN 36.0 H Creatinine 0.9 Phosphorus 4.8 Urine Protein Negative Urine Blood Negative 04/16/19 07:20 BUN 28.0 H Creatinine 1.0 Phosphorus Urine Protein Urine Blood Impression 1. dehydration 2. likely pre-renal disease 3. possible angiomyolipoma 4. anorexia Plan - I do not recommend IV lasix - dehydration likely from diuretics - will need follow up renal ultrasound - monitor luanates
--- NOTE | 2019-04-16 12:39 | DS ---
Physical Exam: SUBJECTIVE: Patient seen and examined OBJECTIVE: Vital Signs Period Temp Pulse Resp BP Sys/Gannon Pulse Ox Last 24 Hr 98.0 F-99.8 F 76-105 16-17 101-143/54-72 95-100 PHYSICAL EXAM GENERAL: The patient is awake, alert, and fully oriented, in no acute distress. LUNGS: Breath sounds equal, clear to auscultation bilaterally, no wheezes, no crackles, no accessory muscle use. HEART: Regular rate and rhythm, S1, S2 without murmur, rub or gallop. ABDOMEN: Soft, nontender, nondistended, EXTREMITIES: 2+ pulses, warm, well-perfused, no edema. NEUROLOGICAL: Cranial nerves II through XII grossly intact. Steady gait. SKIN: Warm, dry, normal turgor Laboratory Tests 04/13/19 04/13/19 04/13/19 09:41 09:41 10:00 WBC 11.4 H RBC 4.08 Hgb 10.8 Hct 32.8 MCV 80.4 MCH 26.3 MCHC 32.7 RDW 16.0 H Plt Count 666 H MPV 8.0 Absolute Neuts (auto) 6.9 Neutrophils % 61.2 Lymphocytes % 22.0 Monocytes % 11.3 H Eosinophils % 4.9 H Basophils % 0.6 Sodium Potassium Chloride Carbon Dioxide Anion Gap BUN Creatinine Est GFR (CKD-EPI)AfAm Est GFR (CKD-EPI)NonAf Random Glucose Calcium Phosphorus Magnesium Total Bilirubin AST ALT Alkaline Phosphatase Troponin I B-Natriuretic Peptide Total Protein Albumin TSH Free T4 Urine Color Yellow Urine Appearance Clear Urine pH 6.0 Urine Protein Negative Urine Glucose (UA) Negative Urine Ketones Negative Urine Blood Negative Urine Nitrite Negative Urine Bilirubin Negative Urine Urobilinogen 0.2 Ur Leukocyte Esterase Negative Urine HCG, Qual Negative 04/13/19 04/13/19 04/13/19 10:00 10:00 10:00 WBC RBC Hgb Hct MCV MCH MCHC RDW Plt Count MPV Absolute Neuts (auto) Neutrophils % Lymphocytes % Monocytes % Eosinophils % Basophils % Sodium 135 L Potassium 3.9 Chloride 99 Carbon Dioxide 24 Anion Gap 12 BUN 36.0 H Creatinine 0.9 Est GFR (CKD-EPI)AfAm 96.69 Est GFR (CKD-EPI)NonAf 83.42 Random Glucose 96 Calcium 9.3 Phosphorus Magnesium Total Bilirubin 0.4 AST 37 ALT 56 Alkaline Phosphatase 92 Troponin I < 0.03 B-Natriuretic Peptide 44.4 Total Protein 7.4 Albumin 4.4 TSH 0.06 L Free T4 1.21 Urine Color Urine Appearance Urine pH Urine Protein Urine Glucose (UA) Urine Ketones Urine Blood Urine Nitrite Urine Bilirubin Urine Urobilinogen Ur Leukocyte Esterase Urine HCG, Qual 04/13/19 04/14/19 04/14/19 10:00 07:50 07:50 WBC 8.1 RBC 3.96 Hgb 10.5 L Hct 31.7 L MCV 80.1 MCH 26.6 MCHC 33.2 RDW 15.9 H Plt Count 624 H MPV 7.6 Absolute Neuts (auto) Neutrophils % Lymphocytes % Monocytes % Eosinophils % Basophils % Sodium 140 Potassium 4.5 Chloride 101 Carbon Dioxide 27 Anion Gap 12 BUN 28.0 H Creatinine 0.8 Est GFR (CKD-EPI)AfAm 111.48 Est GFR (CKD-EPI)NonAf 96.19 Random Glucose 104 Calcium 9.4 Phosphorus 5.0 H 4.8 Magnesium 2.2 Total Bilirubin 0.2 AST 30 ALT 45 Alkaline Phosphatase 74 D Troponin I B-Natriuretic Peptide Total Protein 6.7 Albumin 4.1 TSH Free T4 Urine Color Urine Appearance Urine pH Urine Protein Urine Glucose (UA) Urine Ketones Urine Blood Urine Nitrite Urine Bilirubin Urine Urobilinogen Ur Leukocyte Esterase Urine HCG, Qual 04/15/19 04/15/19 04/16/19 12:30 12:30 07:20 WBC 8.5 8.4 RBC 4.37 4.00 Hgb 11.4 10.7 Hct 34.9 31.9 L MCV 79.8 L 79.9 L MCH 26.0 26.7 MCHC 32.6 33.5 RDW 15.9 H 15.8 H Plt Count 766 H 650 H MPV 7.6 7.6 Absolute Neuts (auto) 5.1 4.4 Neutrophils % 59.5 52.1 Lymphocytes % 26.0 31.8 Monocytes % 11.2 H 11.7 H Eosinophils % 2.8 3.9 Basophils % 0.5 0.5 Sodium 133 L Potassium 4.2 Chloride 93 L Carbon Dioxide 26 Anion Gap 14 BUN 24.0 H Creatinine 0.9 Est GFR (CKD-EPI)AfAm 96.69 Est GFR (CKD-EPI)NonAf 83.42 Random Glucose 119 H Calcium 9.9 Phosphorus Magnesium 1.7 L Total Bilirubin 0.5 AST 24 ALT 36 Alkaline Phosphatase 86 D Troponin I B-Natriuretic Peptide Total Protein 7.5 Albumin 4.5 TSH Free T4 Urine Color Urine Appearance Urine pH Urine Protein Urine Glucose (UA) Urine Ketones Urine Blood Urine Nitrite Urine Bilirubin Urine Urobilinogen Ur Leukocyte Esterase Urine HCG, Qual 04/16/19 07:20 WBC RBC Hgb Hct MCV MCH MCHC RDW Plt Count MPV Absolute Neuts (auto) Neutrophils % Lymphocytes % Monocytes % Eosinophils % Basophils % Sodium 136 Potassium 4.2 Chloride 96 L Carbon Dioxide 26 Anion Gap 14 BUN 28.0 H Creatinine 1.0 Est GFR (CKD-EPI)AfAm 85.12 Est GFR (CKD-EPI)NonAf 73.45 Random Glucose 96 Calcium 9.5 Phosphorus Magnesium 2.1 Total Bilirubin 0.5 AST 26 ALT 28 Alkaline Phosphatase 78 Troponin I B-Natriuretic Peptide Total Protein 6.8 Albumin 4.2 TSH Free T4 Urine Color Urine Appearance Urine pH Urine Protein Urine Glucose (UA) Urine Ketones Urine Blood Urine Nitrite Urine Bilirubin Urine Urobilinogen Ur Leukocyte Esterase Urine HCG, Qual HOSPITAL COURSE: Date of Admission:04/13/19 Date of Discharge: 04/16/19 33 year old female with history of anorexia nervosa currently living at [facility] for eating disorders, PMH of previous [place], pulmonary edema, renal failure, seizure disorder, and asthma arrived to ED from the facility over concerns for abnormal labs. Patient states facility was concerned that her BUN/ creatinine ratio was off, blood pressure elevated, with episodes of tachycardia in the evening (rate of 130s to 140s). Patient states that she is pending inpatient approval for treatment at a facility in [facility]. Patient was recently started on antibiotics for a sinus infection is taking Augmentin and prior to that she was on Ceftin for another bronchial infection. According to facility heart rate goes into 130's at night while at rest, per facility weight gain is not due to eating, but concerns for fluid retention, has gained 30 lbs in one month. Anorexia Nervosa Fluid overload likely secondary to refeeding syndrome Moderate protein calorie malnutrition --discussed history with Dr. Keith Glez, Merchand[employer], [facility], [facility]; patient hospitalized there previously --fluid neutral weight is 117lbs; at time of this discharge patient weighs 144.3lbs --has been in residential facility in [place] but current med regimen has failed to stop rapid and severe fluid accumulation over the past 30 days --cardiac workup here unremarkable: ECHO: EF 55-60%, left ventricular systolic function normal --we continued spironolactone, increased bumex to 2mg BID --patient to be transported via [facility] to [place] Dispo: transfer to [facility], [facility]; Dr. Keith Glez [phone] [employer]ch[employer]; pharmacy care coordinator Josette [phone] Minutes to complete discharge: 60 Discharge Summary Problems reviewed: Yes Reason For Visit: SOB/PALPITATIONS/CARDIAC ARRHYTMIA Current Active Problems Anorexia (Acute) Anxiety (Acute) Asthma (Acute) Congestive heart failure (Acute) Constipation (Acute) Elevated BUN (Acute) Gastroparesis (Acute) Hypothyroidism (Acute) Insomnia disorder (Acute) Nicotine dependence (Acute) Palpitations (Acute) Prerenal azotemia (Acute) Shortness of breath (Acute) Tachycardia (Acute) Condition: Improved - Instructions Disposition: TRANSFER ACUTE CARE/OTHER HOSP - Home Medications Comprehensive Discharge Medication List: Ambulatory Orders Diazepam [Valium] 2.5 mg PO BID 04/01/19 Duloxetine HCl [Cymbalta] 80 mg PO DAILY 04/01/19 Lorazepam [Ativan] 1 mg PO HS 04/01/19 Lorazepam [Ativan] 2 mg PO DAILY 04/01/19 Melatonin 5 mg PO HS 04/01/19 Metoclopramide HCl [Reglan] 5 mg PO QID 04/01/19 Levothyroxine Sodium [Levoxyl] 187.5 mcg PO DAILY 04/10/19 Linaclotide [Linzess] 290 mcg PO DAILY 04/10/19 Loratadine [Allergy] 10 mg PO BID 04/10/19 Spironolactone [Aldactone] 200 mg PO DAILY 04/10/19 Albuterol Sulfate Inhaler - [Ventolin HFA Inhaler -] 1 - 2 inh PO QID PRN Calcium Carbonate/Vitamin D3 [Calcium 600-Vit D3 200 Tablet] 1 each PO DAILY 07/01 Lidocaine 5% Patch [Lidoderm -] 1 patch TP DAILY PRN 04/13/19 Mag/Aluminum/Sod Bicarb/Alginc [Gaviscon 80-14.2 mg Tab Chew] 2 tab PO TID PRN 04/13/19 Meclizine HCl [Antivert -] 25 mg PO ASDIR PRN 04/13/19 Nicotine Patch [Nicoderm Patch -] 1 patch TD DAILY 04/13/19 Sumatriptan Succinate [Imitrex -] 100 mg PO ASDIR PRN MDD 200mg 04/13/19 Bumetanide [Bumex -] 2 mg PO BID@1000,2200 tablet 04/16/19 This patient is new to me today: Yes Date on this admission: 04/16/19 Emergency Visit: No Critical Care patient: No - Discharge Referral Referred to [facility] No
[2019-04-16] MEDS ORDERED: BUMETANIDE 1 MG TABLET PO ONE (12:40)
[2019-04-16] MEDS ORDERED: diazePAM 5 MG TABLET PO ONE (17:30)
[2019-04-16 18:24] VITALS: BP 135/57; PULSE 80; TEMP 98.8
[2019-04-16] MEDS ORDERED: BUMETANIDE 1 MG TABLET PO SCH (22:00)
== END 2019-04-16 19:15 | disposition short-term general hospital (02) | DRG 308 ==
LOC: FER 09:23 → FM/S 14:10
PROVIDERS: ATTEND Nurse Practitioner Acute Care
DX: R00.0 Tachycardia, unspecified (principal); E43 Unspecified severe protein-calorie malnutrition; N13.30 Unspecified hydronephrosis; Z68.22 Body mass index [BMI] 22.0-22.9, adult; E87.70 Fluid overload, unspecified; R63.0 Anorexia; I50.9 Heart failure, unspecified; J45.909 Unspecified asthma, uncomplicated; F41.9 Anxiety disorder, unspecified; K59.00 Constipation, unspecified; E03.9 Hypothyroidism, unspecified; G47.00 Insomnia, unspecified; R00.2 Palpitations; R06.02 Shortness of breath; E86.0 Dehydration; K31.84 Gastroparesis; M81.0 Age-related osteoporosis without current pathological fracture; F17.210 Nicotine dependence, cigarettes, uncomplicated; R79.89 Other specified abnormal findings of blood chemistry; F50.89 Other specified eating disorder
CPT/HCPCS: 36415; 71046-TC-FY; 76775-TC; 80053; 81003; 82962; 83735; 83880; 84100; 84439; 84443; 84484; 84703; 85025; 85027; 93005; 93306-TC; 94640; 99283-25; J0131; J1644